=== PATIENT | male | born 1955 | race Caucasian/White ===

== ENCOUNTER 2016-12-20 11:28 | Inpatient (IN) | payer OTHER ==
[~2016-12-20] VITALS: Ht 193 cm; Wt 124.5 kg
[~2016-12-20 11:28] MED LIST: ASPI81 PO; DOXE25CA2 PO; FURO20 PO; HYDR25TA35 PO; LANTUSP SQ; LATA0.00 EACH EYE; LISI-366 PO; METF850T PO; METO50TA PO; NITR0.4S SL; OMEP20TA PO; POTA1TAB4 PO; PROC90TA PO
[2016-12-24] MEDS ORDERED: INSULIN HUMAN REGULAR 1,000 UNITS/10 ML VIAL SQ PRN (10:45)
[2016-12-24] MEDS ORDERED: SODIUM CHLORID 0.9% 500 ML IV PRN (10:45)
[2016-12-24] MEDS ORDERED: CHLORHEXIDINE GLUCONATE 2 % 1 PACK (2 CLOTHS) TOPICAL PRN (10:45)
[2016-12-24] MEDS ORDERED: LACTATED RINGER'S 1000 ML IV PRN (10:45)
[2016-12-24] MEDS ORDERED: POVIDONE IODINE 5% (ANTISEPSIS KIT) 4 APPLICATIONS EACH NARE PRN (10:45)
[2016-12-24] MEDS ORDERED: METOPROLOL TARTRATE 25 MG TAB PO PRN (10:45)
[2016-12-24] MEDS ORDERED: CHLORHEXIDINE GLUCONATE 4% SOLN 120 ML BTL TOPICAL SCH (11:00)
[2016-12-24] MEDS ORDERED: VANCOMYCIN 1000 MG/NS 250 ML (for <70 kg) IV SCH ×2 (11:00)
[2016-12-24] MEDS ORDERED: METO25TA3 PO (11:17)
[2016-12-24] MEDS ORDERED: LATA0.002 EACH EYE (11:17)
[2016-12-24] MEDS ORDERED: MOBI15TA PO (11:17)
[2016-12-24] MEDS ORDERED: ALDA100T PO (11:17)
[2016-12-24] MEDS ORDERED: LISI40TA PO (11:17)
[2016-12-24] MEDS ORDERED: ATOR40TA16 PO (11:17)
[2016-12-24] MEDS ORDERED: NIFE90TA2 PO (11:17)
[2016-12-24] MEDS ORDERED: ASPI-110 PO (11:17)
[2016-12-24] MEDS ORDERED: FURO20TA PO (11:17)
[2016-12-24] MEDS ORDERED: ACET325C PO (11:17)
[2016-12-24] MEDS ORDERED: DOXE25CA2 PO (11:17)
[2016-12-24] MEDS ORDERED: METF1000 PO (11:17)
[2016-12-24] MEDS ORDERED: OMEP20CA2 PO (11:17)
[2016-12-24] MEDS ORDERED: LANTUS2P SQ (11:17)
[2016-12-24] MEDS ORDERED: ISOS20TA PO (11:17)
[2016-12-24] MEDS ORDERED: NOVOLOGP2 SQ (11:17)
[2016-12-24 11:22] VITALS: BP 110/64; PULSE 68; RESP 18; TEMP 97.9; O2SAT 97
[2016-12-24] MEDS ORDERED: GENTAMICIN SULFATE 80 MG/2 ML VIAL ONE (11:42)
[2016-12-24] MEDS ORDERED: ACETAMINOPHEN 1000 MG/100 ML VIAL IV ONE (12:23)
[2016-12-24] MEDS ORDERED: MIDAZOLAM HCL 2 MG/2 ML VIAL ONE (12:23)
[2016-12-24] MEDS ORDERED: LR IV ONE (12:35)
[2016-12-24] MEDS ORDERED: [UNRECOGNIZED DRUG - OTHER] IV ONE (12:35)
[2016-12-24] MEDS ORDERED: CLINDAMYCIN PHOS 600 MG/4 ML VIAL ONE (13:01)
[2016-12-24] MEDS ORDERED: CLINDAMYCIN PHOS 600 MG/4 ML VIAL IRRIGATION ONE (13:21)
--- NOTE | 2016-12-24 14:48 | HHI.PR ---
Immediate Post Op Note Procedure Date: Dec 24, 2016 Pre Op Diagnosis: R Hip Severe OA Post Op Diagnosis: Same Surgeon: Nik Rosales MD Poultry Picking Machine Tender(s): Denae Rodríguez PA-C Procedure: R THR Complications: None Specimen(s) removed: None Estimated blood loss: 200cc Anesthesia: General Drains: None Patient to: PACU Patient Condition: Good Implant/Devices: SEE IMPLANT LOG (if applicable) Date/Time of Procedure: SEE SURGICAL CARE RECORD Nik Rosales MD Dec 24, 2016 14:48
[2016-12-24] MEDS ORDERED: Post-op Orders (for Pharmacy) MISC XX ONE (15:00)
[2016-12-24] MEDS ORDERED: ACETAMINOPHEN/HYDROcodone 325 MG/7.5 MG TAB PO PRN (15:00)
[2016-12-24] MEDS ORDERED: ONDANSETRON HCL 4 MG/2 ML VIAL IVP PRN (15:00)
[2016-12-24] MEDS ORDERED: ALUMINUM/MAGNESIUM/SIMETH 30 ML CUP PO PRN (15:00)
[2016-12-24] MEDS ORDERED: WALKER WHEELS/F1 MIS (15:04)
[2016-12-24] MEDS ORDERED: BEDSIDE COMMODE1 MI1 (15:04)
[2016-12-24] MEDS ORDERED: fentaNYL CITRATE 250 MCG/5 ML AMP ONE (15:12)
[2016-12-24] MEDS ORDERED: SODIUM CHLORIDE 0.9% FLUSH 10 ML FLUSH IV FLUSH PRN (15:45)
[2016-12-24] MEDS: SODIUM CHLORIDE 0.9% FLUSH 10 ML FLUSH IV FLUSH SCH ×2 (16:00→22:03)
[2016-12-24] MEDS: LACTATED RINGER'S 1000 ML INJ 1,000 ML IV SCH (16:00)
[2016-12-24] MEDS ORDERED: PILL SPLITTER OTHER PRN (16:00)
--- NOTE | 2016-12-24 16:03 | RADRPT ---
EXAM DATE/TIME: 12/24/2016 15:30 [place] COMPARISON: No previous studies available for comparison. INDICATIONS : Post op right hip arthroplasty. MEDICAL HISTORY : None. SURGICAL HISTORY : None. ENCOUNTER: Initial ACUITY: 1 day PAIN SCORE: 0/10 LOCATION: Right hip FINDINGS: The patient is post right hip arthroplasty. Orthopedic hardware is in excellent position. There are advanced degenerative changes within the left hip. The bowel gas pattern is unremarkable. CONCLUSION: 1. Orthopedic hardware in excellent position. Nimesh Jerry MD on December 24, 2016 at 16:00 Board Certified Radiologist. This report was verified electronically.
[2016-12-24] MEDS ORDERED: DO NOT ADM ANY ANTICOAGULANT DRUGS PRN (16:30)
[2016-12-24 16:50] VITALS: BP 171/87; PULSE 71; RESP 18; TEMP 97; O2SAT 99
[2016-12-24] MEDS ORDERED: INSULIN ASPART 1,000 UNITS/10 ML VIAL SQ SCH (17:00)
[2016-12-24 17:40] VITALS: O2SAT 99
[2016-12-24] MEDS: CLINDAMYCIN INJ 600 MG in SODIUM CHLORIDE 0.9% INJ 100 ML IV SCH (18:00)
[2016-12-24] MEDS: metFORMIN HCL 500 MG TAB PO SCH (18:08)
[2016-12-24] MEDS: FUROSEMIDE 20 MG TAB PO SCH (18:09)
[2016-12-24] MEDS: ACETAMINOPHEN/HYDROcodone 325 MG/7.5 MG TAB PO PRN ×2 (18:14→22:07)
[2016-12-24 19:00] VITALS: BP 165/79; PULSE 76; RESP 17; TEMP 95.9; O2SAT 99
--- NOTE | 2016-12-24 19:25 | MB ---
cc: DERREK BENSON M.D., ALBERT W. M.D. DATE OF CONSULTATION 12/24/2016 DATE OF 1955 REASON FOR CONSULTATION This is a 61-year-old gentleman status post right total hip with severe osteoarthritis. BRIEF HISTORY This gentleman has been noted to have severe osteoarthritis of his right hip requiring a total right hip. This was completed today on December 24, 2016. The patient has been referred to us for consideration of radiation treatment to prevent heterotrophic bone formation. This gentleman is status post hip surgery. He is alert and oriented and was suffering from immediate postoperative pain but otherwise in no immediate distress. PAST MEDICAL AND SURGICAL HISTORY Includes: 1. Coronary artery bypass surgery x2. 2. A previous right shoulder surgery. 3. He is an insulin-dependent diabetic. 4. He has severe osteoarthritis. 5. He also has a past history of hyperlipidemia. 6. Hypertension. 7. Sleep apnea. 8. Post traumatic stress. 9. Gastroesophageal reflux disease. 10. As mentioned he had a previous right shoulder surgery in 1988. 11. And coronary artery bypass surgery in 2005 and 2011. ALLERGIES INCLUDE PENICILLIN, PERCODAN AND SIMVASTATIN. REVIEW OF SYSTEMS This gentleman is seen in the postoperative setting. He is currently denying new symptoms, cardiovascular, respiratory, eyes, ears, nose or throat, neurologic, GI, or other complaints. He has had a recent total right hip repair and he is suffering with the normal pain immediate postoperative pain associated with this. PHYSICAL EXAMINATION GENERAL: Brief exam reveals an alert, oriented gentleman in no immediate distress. VITAL SIGNS: His vital signs have been noted to be afebrile, pulse of 73 and regular, respiratory rate of 20, blood pressure 146/74, pulse oximetry of 99%, although that was on 2 liters of oxygen. HEENT: There is no jaundice. His conjunctive and eyelids were normal. LYMPHATICS: There is no adenopathy in his head and neck. LUNGS: His lung muñoz were clear without effusion. CARDIOVASCULAR: His heart sounds were normal without murmurs, rubs or bruits. ABDOMEN: There are no abdominal masses. EXTREMITIES: His right hip has a dressing over this and his right leg is immobilized with an appropriate device. His left leg is normal. RECOMMENDATIONS I have reviewed with this gentleman the reason and rationale for consideration of postoperative radiation treatment after a total right hip repair. This is designed to reduce the risk of heterotropic osteodystrophy which can cause him pain and ultimately lead to the need for further surgery in the future. We make our decision to deliver this treatment based on Dr. Rosales's recommendation but the literature definitely supports this. Our desire to give treatment if possible within the first 24 hours or at least within the first 72 hours. With that in mind we plan to simulate this gentleman tomorrow and give him his treatment the same day so that is treatment will be within the first 24-hour period. Thank you again. MD RHONDA Abbasi/KK /5:07 PM /7:05 PM
[2016-12-24] MEDS: MORPHINE SULFATE 8 MG/ML INJ IM PRN (21:07)
[2016-12-24] MEDS: ATORVASTATIN 40 MG TAB PO SCH (22:02)
[2016-12-24] MEDS: LATANOPROST 0.005% OPHT SOLN 2.5 ML BTL EACH EYE SCH (22:02)
[2016-12-24] MEDS: METOPROLOL TARTRATE 25 MG TAB PO SCH (22:03)
[2016-12-24] MEDS: LISINOPRIL 20 MG TAB PO SCH (22:03)
[2016-12-24] MEDS: DOXEPIN HCL 25 MG CAP PO SCH (22:03)
--- NOTE | 2016-12-24 22:14 | PD.CONS ---
HPI Service [facility] Hospitalists Consult Requested By Orthopedic surgery Reason for Consult Medical management. Primary Care Physician [facility] Diagnoses: History of Present Illness Mr. Holman is a pleasant 61 year old [place] with a history of CAD s/p CABG, Diabetes mellitus, hypertension who underwent elective right total hip arthroplasty on 12/24/2016. At the time of this interview, patient is sitting in his chair and eating his dinner. He complains of right lower extremity pain. Denies any chest pain, shortness of breath, fever, chills. Denies any abdominal pain. No changes in bowel or bladder habits. Patient was seen earlier by Radiation Oncologist Dr. Amaral with regards to prevention of heterotrophic bone formation. Review of Systems Except as stated in HPI: all other systems reviewed are Neg Past Family Social History Allergies: Coded Allergies: Penicillin (Verified Allergy, Severe, 10/10/14) Simvastatin (Verified Allergy, Severe, 12/24/16) Percodan (Verified Adverse Reaction, Severe, HALLUCINATIONS, 10/10/14) Past Medical History Rheumatoid arthritis Osteoarthritis Diabetes mellitus CAD s/p CABG twice. Hyperlipidemia Hypertension Past Surgical History CABG twice Shoulder surgery Family History Dad - dementia, stroke. Social History Tobacco - quit 2 months ago Alcohol - Quit 7 years ago. Denies using illicit drugs. Physical Exam Vital Signs Vital Signs Date Time Temp Pulse Resp B/P Pulse Ox O2 Delivery O2 Flow Rate FiO2 12/24/16 19:00 95.9 76 17 165/79 99 12/24/16 17:40 99 21 12/24/16 16:50 97.0 71 18 171/87 99 12/24/16 15:05 97.9 73 20 146/74 99 Nasal Cannula 2 12/24/16 11:22 97.9 68 18 110/64 97 Physical Exam GENERAL: This is a well-nourished, well-developed patient, in no apparent distress. SKIN: No rashes, ecchymoses or lesions. Warm and dry. HEAD: Atraumatic. Normocephalic. No temporal or scalp tenderness. EYES: Pupils equal round and reactive. No injection or drainage. ENT: Nose without bleeding, purulent drainage or septal hematoma. Airway patent. NECK: Trachea midline. No lymphadenopathy. Supple, nontender, no meningeal signs. CARDIOVASCULAR: Regular rate and rhythm without murmurs, gallops, or rubs. No JVD. RESPIRATORY: Clear to auscultation. Breath sounds equal bilaterally. No wheezes , rales, or rhonchi. GASTROINTESTINAL: Abdomen soft, non-tender, nondistended. No guarding. MUSCULOSKELETAL: Extremities without clubbing, cyanosis, or edema. s/p right total hip arthroplasty. NEUROLOGICAL: Awake and alert. Cranial nerves II through XII intact. No focal neurological deficits. Normal speech. Laboratory Laboratory Tests Test 12/24/16 11:05 Blood Type A POSITIVE Antibody Screen NEGATIVE Crossmatch Leukocyte-Reduced Red Blood Cells Blood Bank Comment Imaging Last Impressions Hip and Pelvis X-Ray 12/24/16 0000 Signed Impressions: Service Date/Time: Saturday, December 24, 2016 15:30 - CONCLUSION: 1. Orthopedic hardware in excellent position. Nimesh Jerry MD Assessment and Plan Problem List: (1) Osteoarthritis of right hip ICD Code: M16.11 Status: Acute (2) CAD (coronary artery disease) ICD Code: I25.10 Status: Acute (3) Diabetes mellitus ICD Code: E11.9 Status: Acute (4) Hypertension ICD Code: I10 Status: Acute Assessment and Plan Mr. Holman is a pleasant 61 year old with a history of CAD s/p CABG, Diabetes mellitus, hypertension who underwent elective right total hip arthroplasty on 12/24/2016. - Right hip osteoarthritis - s/p right total hip arthroplasty - [place] 7.5mg 1-2 Tablets PRN for pain - Continue Colace, Dulcolax PRN for bowel regimen. - Warfarin for DVT Prophylaxis. - Radiation Oncology evaluated to prevent heterotrophic bone formation. Simulation on 12/25/2016. - Diabetes Mellitus - Continue Metformin 1000mg BIDPC - Patient is also on Aspart 20 units TIDAC as well as Levemir 40 units SQ daily. - Will reduce pre-meal insulin to 15 units TIDAC and Levemir to 25 units SQ Daily. - Hypertension - CAD s/p CABG twice - Hyperlipidemia - Continue Lisinopril 40mg QHS, Nifedipine 90mg Qday, - Lasix 20mg PO BID, Spironolactone 200mg Qday, Lipitor 40mg QHS Full code. Warfarin. Thank you for the consult. We will continue to follow this patient with you. Chanda Brothers DO Dec 24, 2016 22:14
[2016-12-25] VITALS (7 sets, daily range): BP systolic 116–189; BP diastolic 62–93; PULSE 66–82; RESP 16–20; TEMP 96.4–98.9; O2SAT 94–98
[2016-12-25] MEDS: CLINDAMYCIN INJ 600 MG in SODIUM CHLORIDE 0.9% INJ 100 ML IV SCH ×3 (00:18→11:40)
[2016-12-25] MEDS: MORPHINE SULFATE 8 MG/ML INJ IM PRN ×3 (00:18→09:40)
[2016-12-25] MEDS ORDERED: BISACODYL 10 MG SUPP RECTAL PRN (01:30)
[2016-12-25] MEDS: ACETAMINOPHEN/HYDROcodone 325 MG/7.5 MG TAB PO PRN ×5 (01:59→20:29)
[2016-12-25] MEDS: LACTATED RINGER'S 1000 ML INJ 1,000 ML IV SCH ×2 (03:15→16:55)
[2016-12-25 06:27] LABS: PROTHROMBIN TIME - PATIENT 11.3 SEC (9.8-11.6)
--- NOTE | 2016-12-25 07:23 | PD.ORT.PN ---
Subjective Subjective Remarks POD#1 R THR No sob;no chest pain Explained operative findings;answered multiple questions Objective Vitals Vital Signs Date Time Temp Pulse Resp B/P Pulse Ox O2 Delivery O2 Flow Rate FiO2 12/25/16 02:04 175/90 12/25/16 00:00 98.5 82 16 189/93 98 12/24/16 19:00 95.9 76 17 165/79 99 12/24/16 17:40 99 21 12/24/16 16:50 97.0 71 18 171/87 99 12/24/16 15:05 97.9 73 20 146/74 99 Nasal Cannula 2 12/24/16 11:22 97.9 68 18 110/64 97 I/O 12/24/16 12/24/16 12/24/16 12/25/16 12/25/16 12/25/16 07:00 15:00 23:00 07:00 15:00 23:00 Intake Total 1680 ml Output Total 1150 ml 200 ml Balance 530 ml -200 ml Intake Oral 480 ml IV Total 100 ml Other 1100 ml Output Urine Total 950 ml 200 ml Estimated Blood Loss 200 ml # Bowel Movements 0 Other Results Laboratory Tests Test 12/25/16 05:53 Prothrombin Time 11.3 SEC (9.8-11.6) Prothromb Time International 1.0 RATIO Ratio Objective Remarks N/V intact Neg trinh's;no calf tenderness No LLD Assessment & Plan Assessment and Plan Ortho stable PT/Rehab Coumadin,TEDS,Sequentials for DVT prophylaxsis D/C to [facility] Nik Rosales MD Dec 25, 2016 07:23
[2016-12-25] MEDS: INSULIN ASPART 1,000 UNITS/10 ML VIAL SQ SCH ×3 (08:00→16:55)
[2016-12-25] MEDS: SODIUM CHLORIDE 0.9% FLUSH 10 ML FLUSH IV FLUSH SCH ×2 (09:00→20:29)
[2016-12-25] MEDS ORDERED: SPIRONOLACTONE 100 MG TAB PO SCH (09:00)
[2016-12-25] MEDS ORDERED: INSULIN DETEMIR 100 UNITS/ML VIAL SQ SCH (09:00)
[2016-12-25] MEDS: ISOSORBIDE MONONITRATE 30 MG TAB PO SCH (09:42)
[2016-12-25] MEDS: METOPROLOL TARTRATE 25 MG TAB PO SCH ×2 (09:43→20:28)
[2016-12-25] MEDS: PANTOPRAZOLE SOD 20 MG DELAYED RELEASE TAB PO SCH (09:43)
[2016-12-25] MEDS: NIFEdipine 90 MG SUSTAINED RELEASE TAB PO SCH (09:43)
[2016-12-25] MEDS: FUROSEMIDE 20 MG TAB PO SCH ×2 (09:43→17:42)
[2016-12-25] MEDS: INSULIN DETEMIR 100 UNITS/ML VIAL SQ SCH (09:44)
[2016-12-25] MEDS: metFORMIN HCL 500 MG TAB PO SCH ×2 (09:44→20:28)
--- NOTE | 2016-12-25 12:17 | MP ---
cc: [facility], PATRICE PAREKH M.D. DATE OF SURGERY 12/24/2016 PREOPERATIVE DIAGNOSIS Right hip severe hyperostotic osteoarthritis. POSTOPERATIVE DIAGNOSIS Right hip severe hyperostotic osteoarthritis. PROCEDURE Right total hip arthroplasty. SURGEON Jeffery Parekh MD CONSULTING SALES EXECUTIVE Denae Rodríguez PA-C SPECIMENS None. ESTIMATED BLOOD LOSS 200 cc. COMPLICATIONS None. ANESTHESIA General. CONDITION Stable. PLAN OF ACTIVITY As per orders. PROCEDURE My dental laboratory assistant Denae Rodríguez PA-C, was present for the entire surgical case. She was medically necessary for the entire case because of the complexity of the case and to facilitate the performance of the procedure. The FINANCIAL ADMINISTRATION OFFICER at back table was not of the skill set for this case to manipulate the instruments e.g. the multiple different soft tissue retractors, trial implants and permanent implants. The patient was brought into the operating room and had satisfactory general endotracheal anesthesia by the Department of Anesthesia. The patient was carefully placed into the lateral decubitus position. With the patient's large sized, great care was made to protect all pressure points. The right hip and lower extremity down to and including the toes were all prepped and draped in the usual sterile manner. Small posterolateral exposure of the hip was made. All bleeders were then coagulated. Dissection was carried through the skin and subcutaneous tissue. The fascia brittanie and gluteus dana was incised in with the skin incision. Charnley retractor was placed in the wound in order to allow better exposure. Great care was taken to protect the sciatic nerve throughout entire operative procedure. The short external rotators were removed as a group. The hip abductors were preserved. Capsulotomy was performed. The hip was dislocated posteriorly. The patient was found to have severe osteoarthritis of the hip joint. Osteotomy of the femoral neck was made at the appropriate level. Exposure of the acetabulum was made. Acetabulum, labrum and capsule were surgically excised. Using hemispherical reamers, the acetabulum was sequentially reamed to 55 mm in outer diameter. Bicentric cup in Press-Fit type manner was found be stable and satisfactory. Attention brought to the femur. It was sequentially broached to a #12 broach using the [employer]ev[employer]loc system. Trial reduction was made with the 0 neck, 28-mm ball. The hip was reduced. The patient was found to have excellent stability, satisfactory limb lengths and satisfactory range of motion. The hip was again dislocated posteriorly. The wound was irrigated copiously. The wound itself was dry. Using the Bi[employer] Taperloc system, a #12 standard offset stem was placed in anatomic position approximately in 15 degrees of anteversion. The patient had excellent "fit and fill." 0 neck, 28-mm ceramic ball was then assembled onto the trunnion. The hip was reduced. Again the patient was found to have satisfactory stability, satisfactory limb length and satisfactory range of motion. The short external rotators were repaired back to the greater trochanter with drill holes using #2 Ticron suture. The wound was irrigated with copious amounts of sterile saline. The wound itself was dry. The wound was closed in routine manner. The fascia brittanie and gluteus dana was closed in line with the skin incision using #2 Ticron suture. The subcuticular layer was closed with 0 Vicryl and 2-0 Vicryl. The skin was approximated with running subcuticular 2-0 nylon suture. Sterile dressings were applied. The patient tolerated the procedure well and arrived in the recovery room in stable and satisfactory condition. MD KEVIN Villalpando/SSB /2:46 PM /11:55 AM
[2016-12-25] MEDS ORDERED: WARFARIN SOD 5 MG TAB PO SCH (16:00)
--- NOTE | 2016-12-25 19:25 | HHI.PR ---
Subjective Remarks Follow up for right hip osteoarthritis s/p right NIKKY in a patient with DM, HTN, CAD s/p CABG. Patient is doing well. He is sitting in his chair. He reports some sweating but no chest pain, shortness of breath, fever or chills. Objective Vitals Vital Signs Date Time Temp Pulse Resp B/P Pulse Ox O2 Delivery O2 Flow Rate FiO2 12/25/16 16:00 96.4 70 19 163/76 96 12/25/16 12:00 98.8 66 20 116/62 95 12/25/16 09:54 98 21 12/25/16 08:00 98.9 66 19 161/71 97 12/25/16 02:04 175/90 12/25/16 00:00 98.5 82 16 189/93 98 I/O 12/24/16 12/24/16 12/24/16 12/25/16 12/25/16 12/25/16 07:00 15:00 23:00 07:00 15:00 23:00 Intake Total 1680 ml 720 ml Output Total 1150 ml 200 ml 800 ml Balance 530 ml -200 ml -80 ml Intake Oral 480 ml 720 ml IV Total 100 ml Other 1100 ml Output Urine Total 950 ml 200 ml 800 ml Estimated Blood Loss 200 ml # Bowel Movements 0 Imaging Last Impressions Hip and Pelvis X-Ray 12/24/16 0000 Signed Impressions: Service Date/Time: Saturday, December 24, 2016 15:30 - CONCLUSION: 1. Orthopedic hardware in excellent position. Nimesh Jerry MD Objective Remarks GENERAL: AOx3, NAD. SKIN: Warm and dry. HEAD: Normocephalic. EYES: No scleral icterus. No injection or drainage. NECK: Supple, trachea midline. No JVD or lymphadenopathy. CARDIOVASCULAR: Regular rate and rhythm without murmurs, gallops, or rubs. RESPIRATORY: Breath sounds equal bilaterally. No accessory muscle use. GASTROINTESTINAL: Abdomen soft, non-tender, nondistended. MUSCULOSKELETAL: No cyanosis, or edema. BACK: Nontender without obvious deformity. No CVA tenderness. Procedures 12/24/2016 PROCEDURE Right total hip arthroplasty. A/P Problem List: (1) Osteoarthritis of right hip ICD Code: M16.11 Status: Acute (2) CAD (coronary artery disease) ICD Code: I25.10 Status: Acute (3) Diabetes mellitus ICD Code: E11.9 Status: Acute (4) Hypertension ICD Code: I10 Status: Acute Assessment and Plan Mr. Holman is a pleasant 61 year old with a history of CAD s/p CABG, Diabetes mellitus, hypertension who underwent elective right total hip arthroplasty on 12/24/2016. - Right hip osteoarthritis - s/p right total hip arthroplasty - [place] 7.5mg 1-2 Tablets PRN for pain - Continue Colace, Dulcolax PRN for bowel regimen. - Warfarin for DVT Prophylaxis. - Radiation Oncology evaluated to prevent heterotrophic bone formation. Simulation on 12/25/2016. - Diabetes Mellitus - Continue Metformin 1000mg BIDPC - At home patient is on Aspart 20 units TIDAC as well as Levemir 40 units SQ daily. - Continue reduced doses: pre-meal insulin to 15 units TIDAC and Levemir to 25 units SQ Daily. - Hypertension - CAD s/p CABG twice - Hyperlipidemia - Continue Lisinopril 40mg QHS, Nifedipine 90mg Qday, - Lasix 20mg PO BID, Spironolactone 200mg Qday, Lipitor 40mg QHS Full code. Warfarin. Chanda Brothers DO Dec 25, 2016 19:25
[2016-12-25] MEDS: DOCUSATE SODIUM 100 MG CAP PO SCH (20:28)
[2016-12-25] MEDS: LISINOPRIL 20 MG TAB PO SCH (20:28)
[2016-12-25] MEDS: ATORVASTATIN 40 MG TAB PO SCH (20:29)
[2016-12-25] MEDS: DOXEPIN HCL 25 MG CAP PO SCH (20:29)
[2016-12-25] MEDS: LATANOPROST 0.005% OPHT SOLN 2.5 ML BTL EACH EYE SCH (20:29)
[2016-12-25] MEDS: ZOLPIDEM TARTRATE 5 MG TAB PO PRN (21:53)
[2016-12-26 00:02] VITALS: BP 144/71; PULSE 65; RESP 18; TEMP 99; O2SAT 96
[2016-12-26] MEDS: ACETAMINOPHEN/HYDROcodone 325 MG/7.5 MG TAB PO PRN ×5 (02:07→20:47)
[2016-12-26] MEDS: LACTATED RINGER'S 1000 ML INJ 1,000 ML IV SCH ×2 (02:53→17:00)
[2016-12-26] MEDS: MORPHINE SULFATE 8 MG/ML INJ IM PRN (03:14)
[2016-12-26 05:51] LABS: PROTHROMBIN TIME - PATIENT 11.2 SEC (9.8-11.6)
[2016-12-26 05:54] LABS: HEMATOCRIT 33.7 % (39.0-51.0); REVIEW FLAG FINAL
--- NOTE | 2016-12-26 07:44 | HHI.PR ---
Subjective Remarks Follow up for right hip osteoarthritis s/p right NIKKY in a patient with DM, HTN, CAD s/p CABG. Mr. Holman is doing well today. Denies any chest pain, shortness of breath, fever, chills. Objective Vitals Vital Signs Date Time Temp Pulse Resp B/P Pulse Ox O2 Delivery O2 Flow Rate FiO2 12/26/16 00:02 99.0 65 18 144/71 96 12/25/16 20:05 98.3 74 18 143/68 94 12/25/16 16:00 96.4 70 19 163/76 96 12/25/16 12:00 98.8 66 20 116/62 95 12/25/16 09:54 98 21 12/25/16 08:00 98.9 66 19 161/71 97 I/O 12/25/16 12/25/16 12/25/16 12/26/16 12/26/16 12/26/16 07:00 15:00 23:00 07:00 15:00 23:00 Intake Total 720 ml 480 ml 480 ml Output Total 200 ml 800 ml 725 ml 1175 ml Balance -200 ml -80 ml -245 ml -695 ml Intake Oral 720 ml 480 ml 480 ml Output Urine Total 200 ml 800 ml 725 ml 1175 ml # Bowel Movements 0 0 Result Diagram: 12/26/16 0502 12/26/16 0502 Imaging Last Impressions Hip and Pelvis X-Ray 12/24/16 0000 Signed Impressions: Service Date/Time: Saturday, December 24, 2016 15:30 - CONCLUSION: 1. Orthopedic hardware in excellent position. Nimesh Jerry MD Objective Remarks GENERAL: AOx3, NAD. SKIN: Warm and dry. HEAD: Normocephalic. EYES: No scleral icterus. No injection or drainage. NECK: Supple, trachea midline. No JVD or lymphadenopathy. CARDIOVASCULAR: Regular rate and rhythm without murmurs, gallops, or rubs. RESPIRATORY: Breath sounds equal bilaterally. No accessory muscle use. GASTROINTESTINAL: Abdomen soft, non-tender, nondistended. MUSCULOSKELETAL: No cyanosis, or edema. BACK: Nontender without obvious deformity. No CVA tenderness. Procedures 12/24/2016 PROCEDURE Right total hip arthroplasty. A/P Problem List: (1) Osteoarthritis of right hip ICD Code: M16.11 Status: Acute (2) CAD (coronary artery disease) ICD Code: I25.10 Status: Acute (3) Diabetes mellitus ICD Code: E11.9 Status: Acute (4) Hypertension ICD Code: I10 Status: Acute Assessment and Plan Mr. Holman is a pleasant 61 year old with a history of CAD s/p CABG, Diabetes mellitus, hypertension who underwent elective right total hip arthroplasty on 12/24/2016. - Right hip osteoarthritis - s/p right total hip arthroplasty - [place] 7.5mg 1-2 Tablets PRN for pain - Continue Colace, Dulcolax PRN for bowel regimen. - Warfarin for DVT Prophylaxis. - Radiation Oncology evaluated to prevent heterotrophic bone formation. Simulation on 12/25/2016. - Diabetes Mellitus - Continue Metformin 1000mg BIDPC - At home patient is on Aspart 20 units TIDAC as well as Levemir 40 units SQ daily. - Continue reduced doses: pre-meal insulin to 15 units TIDAC and Levemir to 25 units SQ Daily. - Currently blood glucose 140-170s. This is reasonable while he is in the hospital. - Hypertension - CAD s/p CABG twice - Hyperlipidemia - Currently on Lisinopril 40mg QHS, Nifedipine 90mg Qday, - Lasix 20mg PO BID, Spironolactone 200mg Qday, Lipitor 40mg QHS - BP is somewhat on the lower side (101/52). We will reduce Lisinopril to 20mg QHS and Spironolactone 100mg Qday. - Acute kidney injury - Baseline creatinine appears to be below 1.0. His creatinine today 1.24. - Possibly due to diuretics use as well as Lisinopril use. - We will monitor while he is here. Will request BMP one week after discharge as well. Full code. Warfarin. Chanda Brothers DO Dec 26, 2016 7:44 am
--- NOTE | 2016-12-26 07:53 | PD.ORT.PN ---
Subjective Subjective Remarks pt doing better than yesterday Objective Vitals Vital Signs Date Time Temp Pulse Resp B/P Pulse Ox O2 Delivery O2 Flow Rate FiO2 12/26/16 00:02 99.0 65 18 144/71 96 12/25/16 20:05 98.3 74 18 143/68 94 12/25/16 16:00 96.4 70 19 163/76 96 12/25/16 12:00 98.8 66 20 116/62 95 12/25/16 09:54 98 21 12/25/16 08:00 98.9 66 19 161/71 97 I/O 12/25/16 12/25/16 12/25/16 12/26/16 12/26/16 12/26/16 07:00 15:00 23:00 07:00 15:00 23:00 Intake Total 720 ml 480 ml 480 ml Output Total 200 ml 800 ml 725 ml 1175 ml Balance -200 ml -80 ml -245 ml -695 ml Intake Oral 720 ml 480 ml 480 ml Output Urine Total 200 ml 800 ml 725 ml 1175 ml # Bowel Movements 0 0 Result Diagram: 12/26/16 0502 12/26/16 0502 Other Results Laboratory Tests Test 12/26/16 05:02 Prothrombin Time 11.2 SEC (9.8-11.6) Prothromb Time International 1.0 RATIO Ratio Objective Remarks sitting up in chair comfortably right hip dressing dry and intact N/V intact Neg trinh's;no calf tenderness No LLD Assessment & Plan Assessment and Plan POD # 2 s/p R NIKKY Ortho stable PT/Rehab Coumadin,TEDS,Sequentials for DVT prophylaxsis- 7.5 mg today D/C to SNF tomorrow if stable Denae Rodríguez Dec 26, 2016 07:53
[2016-12-26 08:00] VITALS: BP 101/52; PULSE 73; RESP 18; TEMP 96.5; O2SAT 96
[2016-12-26] MEDS: INSULIN ASPART 1,000 UNITS/10 ML VIAL SQ SCH ×3 (08:00→17:00)
[2016-12-26] MEDS: DOCUSATE SODIUM 100 MG CAP PO SCH ×2 (08:50→20:44)
[2016-12-26] MEDS: metFORMIN HCL 500 MG TAB PO SCH ×2 (08:51→17:00)
[2016-12-26] MEDS: PANTOPRAZOLE SOD 20 MG DELAYED RELEASE TAB PO SCH (08:52)
[2016-12-26] MEDS: SODIUM CHLORIDE 0.9% FLUSH 10 ML FLUSH IV FLUSH SCH ×2 (08:57→20:44)
[2016-12-26] MEDS: FUROSEMIDE 20 MG TAB PO SCH ×2 (09:00→17:00)
[2016-12-26] MEDS: METOPROLOL TARTRATE 25 MG TAB PO SCH ×2 (09:00→20:45)
[2016-12-26] MEDS: INSULIN DETEMIR 100 UNITS/ML VIAL SQ SCH (09:00)
[2016-12-26 12:00] VITALS: BP 156/75; PULSE 76; RESP 18; TEMP 97.6; O2SAT 99
[2016-12-26] MEDS ORDERED: ONDANSETRON HCL 4 MG/2 ML VIAL IV PUSH ONE (12:00)
[2016-12-26] MEDS ORDERED: SODIUM CHLORIDE 0.9% INJ 250 ML IV ONE (12:00)
[2016-12-26] MEDS ORDERED: PROPOFOL 200 MG/20 ML AMP IV ONE (12:00)
[2016-12-26] MEDS ORDERED: LACTATED RINGER'S 1000 ML INJ 1,000 ML IV ONE (12:00)
[2016-12-26] MEDS ORDERED: ePHEDrine/NS 25 MG/5 ML SYR IV ONE (12:00)
[2016-12-26] MEDS ORDERED: NEOSTIGMINE 3 MG/3 ML SYR IV ONE (12:00)
[2016-12-26] MEDS ORDERED: PHENYLEPH/NS 1000 MCG/10 ML SYR IV ONE (12:00)
[2016-12-26] MEDS: ISOSORBIDE MONONITRATE 30 MG TAB PO SCH (12:27)
[2016-12-26] MEDS: NIFEdipine 90 MG SUSTAINED RELEASE TAB PO SCH (12:27)
[2016-12-26] MEDS ORDERED: LACTULOSE SYRUP 20 GM/30 ML CUP PO PRN (14:15)
[2016-12-26] MEDS ORDERED: SENNOSIDES 8.6 MG TAB PO PRN (14:15)
[2016-12-26 16:00] VITALS: BP 137/74; PULSE 80; RESP 18; TEMP 97.8; O2SAT 97
[2016-12-26] MEDS ORDERED: WARFARIN SOD 7.5 MG TAB PO ONE (16:00)
[2016-12-26 20:00] VITALS: BP 134/60; PULSE 84; RESP 16; TEMP 98.2; O2SAT 96
[2016-12-26] MEDS: MAGNESIUM HYDROXIDE SUSP 30 ML CUP PO SCH (20:44)
[2016-12-26] MEDS: LATANOPROST 0.005% OPHT SOLN 2.5 ML BTL EACH EYE SCH (20:44)
[2016-12-26] MEDS: DOXEPIN HCL 25 MG CAP PO SCH (20:45)
[2016-12-26] MEDS: ATORVASTATIN 40 MG TAB PO SCH (20:46)
[2016-12-26] MEDS ORDERED: LISINOPRIL 20 MG TAB PO SCH (21:00)
[2016-12-27 00:15] VITALS: BP 120/56; PULSE 72; RESP 20; TEMP 97.6; O2SAT 96
[2016-12-27] MEDS: ZOLPIDEM TARTRATE 5 MG TAB PO PRN (00:27)
[2016-12-27] MEDS: ACETAMINOPHEN/HYDROcodone 325 MG/7.5 MG TAB PO PRN ×5 (00:28→17:25)
[2016-12-27] MEDS: LACTATED RINGER'S 1000 ML INJ 1,000 ML IV SCH (06:26)
[2016-12-27 06:30] LABS: PROTHROMBIN TIME - PATIENT 11.1 SEC (9.8-11.6)
[2016-12-27 08:00] VITALS: BP 128/65; PULSE 71; RESP 18; TEMP 97.7; O2SAT 96
[2016-12-27] MEDS: INSULIN ASPART 1,000 UNITS/10 ML VIAL SQ SCH ×3 (08:00→17:00)
[2016-12-27] MEDS: INSULIN DETEMIR 100 UNITS/ML VIAL SQ SCH (09:00)
[2016-12-27] MEDS ORDERED: SPIRONOLACTONE 100 MG TAB PO SCH (09:00)
[2016-12-27] MEDS: SODIUM CHLORIDE 0.9% FLUSH 10 ML FLUSH IV FLUSH SCH (09:00)
[2016-12-27] MEDS: NIFEdipine 90 MG SUSTAINED RELEASE TAB PO SCH (10:13)
[2016-12-27] MEDS: metFORMIN HCL 500 MG TAB PO SCH ×2 (10:13→17:24)
[2016-12-27] MEDS: DOCUSATE SODIUM 100 MG CAP PO SCH (10:13)
[2016-12-27] MEDS: MAGNESIUM HYDROXIDE SUSP 30 ML CUP PO SCH (10:13)
[2016-12-27] MEDS: ISOSORBIDE MONONITRATE 30 MG TAB PO SCH (10:13)
[2016-12-27] MEDS: METOPROLOL TARTRATE 25 MG TAB PO SCH (10:14)
[2016-12-27] MEDS: PANTOPRAZOLE SOD 20 MG DELAYED RELEASE TAB PO SCH (10:14)
[2016-12-27] MEDS: FUROSEMIDE 20 MG TAB PO SCH ×2 (10:14→17:24)
--- NOTE | 2016-12-27 11:25 | HHI.PR ---
Subjective Remarks Follow up for right hip osteoarthritis s/p right NIKKY in a patient with DM, HTN, CAD s/p CABG. Mr. Holman is doing well. No acute concerns. He has not had any bowel movements yet. He does not want to drink prune juice but has taken Milk of Mag. No fever, chills. Objective Vitals Vital Signs Date Time Temp Pulse Resp B/P Pulse Ox O2 Delivery O2 Flow Rate FiO2 12/27/16 08:00 97.7 71 18 128/65 96 12/27/16 00:15 97.6 72 20 120/56 96 12/26/16 20:00 98.2 84 16 134/60 96 12/26/16 16:00 97.8 80 18 137/74 97 12/26/16 13:26 16 12/26/16 12:00 97.6 76 18 156/75 99 I/O 12/26/16 12/26/16 12/26/16 12/27/16 12/27/16 12/27/16 07:00 15:00 23:00 07:00 15:00 23:00 Intake Total 480 ml 1440 ml 480 ml Output Total 1175 ml 1300 ml 350 ml Balance -695 ml 140 ml 130 ml Intake Oral 480 ml 1440 ml 480 ml Output Urine Total 1175 ml 1300 ml 350 ml # Bowel Movements 0 0 Result Diagram: 12/26/16 0502 12/26/16 0502 Imaging Last Impressions Hip and Pelvis X-Ray 12/24/16 0000 Signed Impressions: Service Date/Time: Saturday, December 24, 2016 15:30 - CONCLUSION: 1. Orthopedic hardware in excellent position. Nimesh Jerry MD Objective Remarks GENERAL: AOx3, NAD. SKIN: Warm and dry. HEAD: Normocephalic. EYES: No scleral icterus. No injection or drainage. NECK: Supple, trachea midline. No JVD or lymphadenopathy. CARDIOVASCULAR: Regular rate and rhythm without murmurs, gallops, or rubs. RESPIRATORY: Breath sounds equal bilaterally. No accessory muscle use. GASTROINTESTINAL: Abdomen soft, non-tender, nondistended. MUSCULOSKELETAL: No cyanosis, or edema. BACK: Nontender without obvious deformity. No CVA tenderness. Procedures 12/24/2016 PROCEDURE Right total hip arthroplasty. A/P Problem List: (1) Osteoarthritis of right hip ICD Code: M16.11 Status: Acute (2) CAD (coronary artery disease) ICD Code: I25.10 Status: Acute (3) Diabetes mellitus ICD Code: E11.9 Status: Acute (4) Hypertension ICD Code: I10 Status: Acute Assessment and Plan Mr. Holman is a pleasant 61 year old Ross with a history of CAD s/p CABG, Diabetes mellitus, hypertension who underwent elective right total hip arthroplasty on 12/24/2016. - Right hip osteoarthritis - s/p right total hip arthroplasty - [place] 7.5mg 1-2 Tablets PRN for pain - Continue Colace, Milk of Mag, Dulcolax PRN for bowel regimen. - Warfarin for DVT Prophylaxis. - Radiation Oncology evaluated to prevent heterotrophic bone formation. Simulation on 12/25/2016. - Diabetes Mellitus - Continue Metformin 1000mg BIDPC - At home patient is on Aspart 20 units TIDAC as well as Levemir 40 units SQ daily. - Continue reduced doses: pre-meal insulin to 15 units TIDAC and Levemir to 25 units SQ Daily. - Hypertension - CAD s/p CABG twice - Hyperlipidemia - Currently on Lisinopril 20mg QHS, Nifedipine 90mg Qday, - Lasix 20mg PO BID, Spironolactone 100mg Qday, Lipitor 40mg QHS - Acute kidney injury - Baseline creatinine appears to be below 1.0. Creatinine 1.24 on 12/26/2016 - Possibly due to diuretics use as well as Lisinopril use. - We will monitor while he is here. Will request BMP one week after discharge as well. Full code. Warfarin. Chanda Brothers DO Dec 27, 2016 11:25 am
[2016-12-27 11:39] VITALS: BP 115/66; PULSE 72; RESP 17; TEMP 96.7; O2SAT 96
--- NOTE | 2016-12-27 12:38 | PD.ORT.PN ---
Subjective Subjective Remarks pt doing well, ready to be discharged today no sob, no chest pain Objective Vitals Vital Signs Date Time Temp Pulse Resp B/P Pulse Ox O2 Delivery O2 Flow Rate FiO2 12/27/16 11:39 96.7 72 17 115/66 96 12/27/16 08:00 97.7 71 18 128/65 96 12/27/16 00:15 97.6 72 20 120/56 96 12/26/16 20:00 98.2 84 16 134/60 96 12/26/16 16:00 97.8 80 18 137/74 97 12/26/16 13:26 16 I/O 12/26/16 12/26/16 12/26/16 12/27/16 12/27/16 12/27/16 07:00 15:00 23:00 07:00 15:00 23:00 Intake Total 480 ml 1440 ml 480 ml Output Total 1175 ml 1300 ml 350 ml Balance -695 ml 140 ml 130 ml Intake Oral 480 ml 1440 ml 480 ml Output Urine Total 1175 ml 1300 ml 350 ml # Bowel Movements 0 0 Result Diagram: 12/26/16 0502 12/26/16 0502 Other Results Laboratory Tests Test 12/27/16 05:46 Prothrombin Time 11.1 SEC (9.8-11.6) Prothromb Time International 1.0 RATIO Ratio Objective Remarks seen by Dr. Nik Rosales right hip dressing dry and intact N/V intact Neg trinh's;no calf tenderness No LLD Assessment & Plan Assessment and Plan POD # 3 s/p R NIKKY Orth[facility] stable PT/Rehab Coumadin 10 mg today TEDS,Sequentials for DVT prophylaxsis- D/C to SNF today Denae Rodríguez Dec 27, 2016 12:38
[2016-12-27 16:00] VITALS: BP 116/54; PULSE 80; RESP 18; TEMP 97.9; O2SAT 97
[2016-12-27] MEDS ORDERED: WARFARIN SOD 10 MG TAB PO ONE (16:00)
[2016-12-27] MEDS ORDERED: WARFARIN SOD 5 MG TAB PO SCH (16:00)
[2016-12-27] MEDS ORDERED: LISI40TA PO (16:05)
[2016-12-27] MEDS ORDERED: ALDA100T PO (16:05)
[2016-12-28] MEDS ORDERED: WARFARIN SOD 5 MG TAB PO SCH (16:00)
--- NOTE | 2016-12-31 08:59 | HHI.DS ---
Discharge Summary Admission Date Dec 24, 2016 at 10:18 Discharge Date: Dec 27, 2016 Admitting Diagnosis Right hip osteoarthritis Diagnosis: (1) Osteoarthritis of right hip Diagnosis: Principal Procedures R NIKKY Brief History This is a 61 year old male patient who presents with the following history. Patient has had hip pain for over 15 years. He has ambulating with a cane for the last 8 years. He has been treated with arthritis medications and also with hydrocodone and tramadol for the pain. He states the pain has progressed and is now having increased difficulty ambulating. Patient is ready to proceed forward with surgical intervention. Imaging x-rays of the right hip show severe osteoarthritis with joint space narrowing PE at Discharge seen by Dr. Nik Rosales right hip dressing dry and intact N/V intact Neg trinh's;no calf tenderness No LLD Hospital Course Patient underwent satisfactory anaesthesia by the dept of anaesthesia. He underwent right total hip arthroplasty on the date of admission. He did well following the procedure. He was treated with low dose coumadin night before procedure and will continue with low dose coumadin for four weeks post operatively to try and prevent DVT. He was started with physical therapy full weight bearing on pod #1. He was also treated with knee high TEDs and sequentials during his stay. He was followed by medical for further evaluation of medical co-morbidities. He progressed well and was discharged to a longterm facility on pod #3 in stable condition. Pt Condition on Discharge: Stable Discharge Disposition: Discharge to SNF Discharge Instructions Diet Instructions: Coumadin (Warfarin) Diet Activities You Can Perform: Weight Bearing as Denae Cárdenas Dec 31, 2016 08:59
== END 2016-12-27 18:22 | DRG 470 ==
LOC: HSDI 12-24 10:18 → N06B 12-24 16:20
PROVIDERS: ADMIT Orthopaedic Surgery Orthopaedic Surgery of the Spine; ATTEND Orthopaedic Surgery Orthopaedic Surgery of the Spine
PROC: 0SR903A Replacement of Right Hip Joint with Ceramic Synthetic Substitute, Uncemented, Open Approach (ICD-10-PCS; principal; 2016-12-24 12:50)
DX: M16.11 Unilateral primary osteoarthritis, right hip (principal); N17.9 Acute kidney failure, unspecified; M06.9 Rheumatoid arthritis, unspecified; I10 Essential (primary) hypertension; I25.10 Atherosclerotic heart disease of native coronary artery without angina pectoris; Z95.1 Presence of aortocoronary bypass graft; E11.9 Type 2 diabetes mellitus without complications; Z79.84 Long term (current) use of oral hypoglycemic drugs; Z79.4 Long term (current) use of insulin; G47.30 Sleep apnea, unspecified; E78.5 Hyperlipidemia, unspecified; K21.9 Gastro-esophageal reflux disease without esophagitis; H40.9 Unspecified glaucoma; Z87.891 Personal history of nicotine dependence
CPT/HCPCS: 73501; 77290; 77307; 77334; 77336; 77412; 77417; 77431; 80048; 82948; 85014; 85018; 85610; 86850; 86900; 86901; 86920; 94150; 99222; C1776; J0131; J1580; J1815; J2250; J2270; J2370; J2405; J2710; J3010; J3370; J7050; J7120; J7121; L1830

== ENCOUNTER 2018-07-10 16:57 | Inpatient (IN) ==
--- NOTE | 2018-07-10 17:36 | ED ---
HPI General Chief complaint: Recheck/Abnormal Lab/Rx Stated complaint: abnormal labs Time Seen by Provider: 07/10/18 17:24 History of Present Illness HPI narrative: This is a 62-year-old male who was sent from the [place] for evaluation of abnormal lab work. Patient reports that he had a routine appointment with a physical therapist today. He was told that he "does not look right" and ended up having outpatient lab work today. He was told that his kidney function was decreased and that his liver function may also possibly be decreased. He was then sent here for further evaluation. In regards to symptoms, the patient reports over the past 2 weeks he has had the sensation of weakness in his legs as well as fatigue, paresthesias in the extremities. Symptoms are moderate. He denies any recent medication changes. He has a history of coronary artery disease, hypertension, sleep apnea, osteoarthritis, rheumatoid arthritis, CHF, hyperlipidemia. He has no other complaints at this time. Related Data Allergies Allergy/AdvReac Type Severity Reaction Status Date / Time penicillin G Allergy Severe Rash Verified 07/10/18 18:41 simvastatin Allergy Severe Rash Verified 07/10/18 18:41 aspirin AdvReac Severe HALLUCINATI Verified 07/10/18 18:41 ONS oxycodone AdvReac Severe HALLUCINATI Verified 07/10/18 18:41 ONS Review of Systems ROS: all other systems reviewed are negative [facility] Medical History Medical History Diabetes (Acute) HTN (hypertension) (Acute) Osteoarthritis (Acute) Rheumatoid aortitis (Acute) Surgical History Surgical History H/O shoulder surgery (Acute) History of hip replacement (Acute) S/P CABG x 3 (Acute) S/P CABG x 4 (Acute) Social History Social History Substance History: No History of Abuse Smoking Status: Former smoker How Often Do You Have a Drink Containing Alcohol: Monthly or less Recent Travel in [facility] within the Last 8 Weeks: No Recent Out of Country Travel within the Last 8 Weeks: No Exam Narrative Exam Narrative: GENERAL: This is a well-developed well-nourished male who is in no acute distress. SKIN: Warm and dry. HEAD: Atraumatic. Normocephalic. EYES: Pupils equal and round. No scleral icterus. No injection or drainage. ENT: No nasal bleeding or discharge. Mucous membranes pink and moist. NECK: Trachea midline. No JVD. CARDIOVASCULAR: Regular rate and rhythm. No murmur appreciated. RESPIRATORY: No accessory muscle use. Clear to auscultation. Breath sounds equal bilaterally. GASTROINTESTINAL: Abdomen soft, non-tender, nondistended. Hepatic and splenic margins not palpable. MUSCULOSKELETAL: No obvious deformities. No clubbing. No cyanosis. No edema. NEUROLOGICAL: Awake and alert. No obvious cranial nerve deficits. Motor grossly within normal limits. Normal speech. Course Initial Documented Vital Signs Temperature 97.3 F L 07/10/18 17:08 Pulse Rate 61 07/10/18 17:08 Respiratory Rate 20 07/10/18 17:08 Blood Pressure 120/61 07/10/18 17:08 Pulse Oximetry 99 07/10/18 17:08 Last Documented Vital Signs Temperature 97.3 F L 07/10/18 17:08 Pulse Rate 74 07/10/18 19:32 Respiratory Rate 16 07/10/18 19:32 Blood Pressure 127/82 07/10/18 17:36 Pulse Oximetry 98 07/10/18 17:36 Medical Decision Making RAYMOND Attestation RAYMOND supervised visit: Yes Attestation: I, Dr. Lockhart, have reviewed the advance practice practitioner's documentation and am in agreement, met with the patient face to face, made the diagnosis, and the medical decision making was done by me. *My assessment and Findings: This patient was sent to us from the [facility] [address] because of acute renal failure. He reports the onset of muscle spasms in his legs and tingling of his fingers about 2 weeks ago. He was seen by physical therapy today. The physical therapist thought that he "did not look good. He was eventually seen by his physician. He was found to have renal failure. Please see Jose Eduardo Andres PA-C's note for a more detailed H&P, final diagnosis and disposition MDM Narrative Medical decision making narrative: The patient was placed on ECG monitoring pulse oximetry. A 12-lead EKG was ordered. An IV will be established, lab work will be obtained and sent to lab. Lab work is notable for a potassium of 5.9, BUN of 51, creatinine 4.17, GFR 15. By comparison his GFR was 59 on December 26, 2016. The patient will be given Kayexalate, calcium gluconate, insulin, dextrose, 500 mL normal saline bolus and albuterol for the treatment of hyperkalemia. He will be admitted for further treatment. Medical Screen Exam Complete: Yes Emergency Medical Condition: Yes Differential Diagnosis Differential Diagnosis: Renal failure, electrolyte abnormality, dehydration, liver failure, medical clearance Lab Data Result diagrams: 07/10/18 17:51 07/10/18 17:51 Lab Results 07/10/18 07/10/18 Range/Units 17:51 17:51 WBC 7.1 (4.0-11.0) th/mm3 RBC 3.86 L (4.50-5.90) mil/mm3 Hgb 12.2 L (13.0-17.0) gm/dL Hct 35.4 L (39.0-51.0) % MCV 91.8 (80.0-100.0) fL MCH 31.7 (27.0-34.0) pg MCHC 34.6 (32.0-36.0) % RDW 13.7 (11.6-17.2) % Plt Count 230 (150-450) th/mm3 MPV 7.3 (7.0-11.0) fL Neut % (Auto) 66.1 (16.0-70.0) % Lymph % (Auto) 23.4 (9.0-44.0) % [place] % (Auto) 7.0 (0.0-8.0) % Eos % (Auto) 2.7 (0.0-4.0) % Baso % (Auto) 0.8 (0.0-2.0) % Neut # (Auto) 4.7 (1.8-7.7) th/mm3 Lymph # (Auto) 1.7 (1.0-4.8) th/mm3 [place] # (Auto) 0.5 (0.0-0.9) th/mm3 Eos # (Auto) 0.2 (0.0-0.4) th/mm3 Baso # (Auto) 0.1 (0.0-0.2) th/mm3 WBC Differential . Differential Comment Auto diff final Sodium 134 L (136-145) meq/L Potassium 5.9 H (3.5-5.1) meq/L Chloride 107 (98-107) meq/L Carbon Dioxide 18.6 L (21.0-32.0) meq/L Anion Gap 8 (5-15) meq/L BUN 51 H (7-18) mg/dL Creatinine 4.17 H (0.60-1.30) mg/dL Estimated GFR 15 L (>89) mL/min Random Glucose 150 H (74-106) mg/dL Calcium 8.6 (8.5-10.1) mg/dL Magnesium 1.9 (1.5-2.5) mg/dL Total Bilirubin 0.6 (0.2-1.0) mg/dL AST 13 L (15-37) U/L ALT 32 (12-78) U/L Alkaline Phosphatase 123 H (45-117) U/L Total Protein 8.3 H (6.4-8.2) g/dL Albumin 3.7 (3.4-5.0) g/dL Discharge Plan Discharge Disposition Patient Disposition: ED Admit(ED Internal Use Only) Discharge Condition Condition: Stable Discharge Order Discharge Orders: ED Use Only Admit Order (Routine); Ordered 07/10/18 Ordered By: Jose Eduardo Andres Discharge Details Diagnosis: Acute renal failure, Acute hyperkalemia Physicians Team ED Provider: Nguyen Lockhart ED Midlevel Provider: Jose Eduardo Andres Primary Care Provider: [facility] Attending Provider: Tera Escamilla Status ED Status: Admitted Patient
[2018-07-10 18:03] LABS: Baso # (Auto) 0.1 th/mm3 (0.0-0.2); Baso % (Auto) 0.8 % (0.0-2.0); Eos # (Auto) 0.2 th/mm3 (0.0-0.4); Eos % (Auto) 2.7 % (0.0-4.0); Hematocrit 35.4 % (39.0-51.0); Hemoglobin 12.2 gm/dL (13.0-17.0); Lymph # (Auto) 1.7 th/mm3 (1.0-4.8); Lymph % (Auto) 23.4 % (9.0-44.0); Mean Corpuscular HGB Conc 34.6 % (32.0-36.0); Mean Corpuscular Hemoglobin 31.7 pg (27.0-34.0); Mean Corpuscular Volume 91.8 fL (80.0-100.0); Mean Platelet Volume 7.3 fL (7.0-11.0); Mono # (Auto) 0.5 th/mm3 (0.0-0.9); Neut # (Auto) 4.7 th/mm3 (1.8-7.7); Neut % (Auto) 66.1 % (16.0-70.0); Platelet Count 230 th/mm3 (150-450); Red Blood Count 3.86 mil/mm3 (4.50-5.90); Red Cell Distribution Width 13.7 % (11.6-17.2); White Blood Count 7.1 th/mm3 (4.0-11.0)
[2018-07-10 18:31] LABS: Albumin 3.7 g/dL (3.4-5.0); Anion Gap 8 meq/L (5-15); Aspartate Aminotransferase 13 U/L (15-37); Blood Urea Nitrogen 51 mg/dL (7-18); Calcium 8.6 mg/dL (8.5-10.1); Carbon Dioxide 18.6 meq/L (21.0-32.0); Chloride 107 meq/L (98-107); Glomerular Filtration Rate 15 mL/min (>89); Glucose,Random 150 mg/dL (74-106); Magnesium 1.9 mg/dL (1.5-2.5); Potassium 5.9 meq/L (3.5-5.1); Sodium 134 meq/L (136-145)
[2018-07-10] MEDS ORDERED: Dextrose 50% in Water 50 ML Vial IV.PUSH ONE (18:33)
[2018-07-10] MEDS ORDERED: RESP: Albuterol Concentrated 2.5 MG/0.5 ML Neb NEB ONE (18:33)
[2018-07-10] MEDS ORDERED: Sodium Polystyrene Sulfonate/Sorbitol Liq 15 GM/60 ML UDC PO ONE (18:33)
[2018-07-10] MEDS ORDERED: Calcium Gluconate Inj 1 GM in Sodium Chlor 0.9% Inj 100 ML IV.SIG ONE (18:33)
[2018-07-10 18:34] LABS: Alanine Aminotransferase 32 U/L (12-78); Alkaline Phosphatase 123 U/L (45-117); Total Protein 8.3 g/dL (6.4-8.2)
[2018-07-10] MEDS ORDERED: Sodium Chlor 0.9% Inj 500 ML IV.SIG SCH (19:00)
[2018-07-10] MEDS ORDERED: Acetaminophen 325 MG Tablet PO PRN (19:23)
[2018-07-10] MEDS ORDERED: Bisacodyl 10 MG Supp RECTAL PRN (19:23)
[2018-07-10] MEDS ORDERED: Dextrose 50% in Water 50 ML Vial IV.PUSH PRN (19:26)
[2018-07-11] MEDS ORDERED: Nitroglycerin SL (Override) 0.4 MG Tab SL PRN (02:42)
--- NOTE | 2018-07-11 02:42 | P.HPIM ---
History of Present Illness Primary Care Physician: [facility] History from patient, ER physician communication, and review of medical records. Patient reported that he was at [facility] for his regular appointment with the physical therapist. Physical therapist noted that patient was not looking well and therefore called the primary care nurse who examined him and thought that he was not looking well. He then was evaluated by his doctor in the clinic agreed with the nurse assessment and therefore did blood work at the clinic. The blood work revealed acute renal failure for which he was sent to the hospital. Patient also reports that for the past 2 weeks, he has been feeling generally weak. He says was simply not able to walk with his walker anymore. He also reports of shortness of breath. Denies any nausea or vomiting or diarrhea. Denies any fever/cough. Denies any urinary burning or pain on urination or frequent urination. Denies any hematemesis/hematochezia/melena/hematuria. He states that he however has soft stools on and off and loose stools. States this has been chronic. Patient is not aware of any prior history of renal failure. He does not have any flank pain. He is on statins at home. However nothing new medications. He is also taking metformin, spironolactone, furosemide. Past medical history: Hypertension Diabetes Coronary artery disease status post CABG. Triple bypass in 2005, and quadruple bypass in 2011. States that he is due for angiogram on August 15, 2018 because of abnormal stress test done recently. Hyperlipidemia COPD. Recent diagnosis. Obstructive sleep apnea on CPAP at night History of renal stones Osteoarthritis Rheumatoid arthritis Past surgical history: CABG Coronary angiogram Right shoulder AC joint repair in 1987 Right hip replacement Social history: Used to smoke cigarettes, quit a year ago. Denies any alcohol abuse or drug abuse. He used to use marijuana. Family history: Family history of rheumatoid arthritis in his mother. Also mom had thyroid disorders, and blood cancer. Home medications: Patient had a list of his home medications from the [facility] in his chart. This was reviewed against our EMR med reconciliation. Inpatient Certification Inpatient Certification: I certify that the inpatient services were ordered in accordance with Medicare regulations governing the order. This includes certification that hospital inpatient services are reasonable and necessary and in the case of services not specified as inpatient-only under 42 CFR 419.22(n), that they are appropriately provided as inpatient services in accordance to with the 2-midnight benchmark under 43 CFR 412.3(e) Estimated Total Length of Stay (Days): 3 Plans for Post Hospital Care: Home Review of Systems Review of Systems: all other systems reviewed are negative [facility] Medical History Medical History CKD (chronic kidney disease) stage 3, GFR 30-59 ml/min (Acute) Diabetes (Acute) HTN (hypertension) (Acute) Osteoarthritis (Acute) Rheumatoid aortitis (Acute) Surgical History Surgical History H/O shoulder surgery (Acute) History of hip replacement (Acute) S/P CABG x 3 (Acute) S/P CABG x 4 (Acute) Social History Social History Substance History: No History of Abuse Smoking Status: Former smoker How Often Do You Have a Drink Containing Alcohol: Monthly or less Recent Travel in [facility] within the Last 8 Weeks: No Recent Out of Country Travel within the Last 8 Weeks: No Immunization History Tetanus Immunization: Unsure Medications and Allergies Allergies Allergy/AdvReac Type Severity Reaction Status Date / Time penicillin G Allergy Severe Rash Verified 07/10/18 18:41 simvastatin Allergy Severe Rash Verified 07/10/18 18:41 aspirin AdvReac Severe HALLUCINATI Verified 07/10/18 18:41 ONS oxycodone AdvReac Severe HALLUCINATI Verified 07/10/18 18:41 ONS Home Medications Medication Instructions Recorded Confirmed Type aspirin [Aspir-81] 81 mg PO DAILY 07/10/18 07/10/18 History brimonidine 0.2 % EACH EYE TID 07/10/18 07/10/18 History doxepin 50 mg PO DAILY 07/10/18 07/10/18 History furosemide 20 mg PO BID 07/10/18 07/10/18 History insulin aspart U-100 8 unit SUBCUT TID 07/10/18 07/10/18 History insulin glulisine U-100 24 unit SUBCUT QAM 07/10/18 07/10/18 History isosorbide mononitrate 30 mg PO DAILY 07/10/18 07/10/18 History latanoprost 1 drp EACH EYE QPM 07/10/18 07/10/18 History lisinopril 40 mg PO DAILY 07/10/18 07/10/18 History metformin 500 mg PO BID 07/10/18 07/10/18 History metoprolol tartrate 25 mg PO BID 07/10/18 07/10/18 History nifedipine 90 mg PO DAILY 07/10/18 07/10/18 History nitroglycerin 0.4 mg SUBLINGUAL Q5-15M PRN 07/10/18 07/10/18 History pantoprazole 40 mg PO DAILY 07/10/18 07/10/18 History spironolactone 100 mg PO DAILY 07/10/18 07/10/18 History Active Medications: Active Medications Acetaminophen (Tylenol) 650 mg PO Q4H PRN PRN Reason: Temp > 100.4 Bisacodyl (Dulcolax Supp) 10 mg RECTAL DAILY PRN PRN Reason: SEVERE CONSITIPATION Dextrose (D50w Vial) 50 ml IV.PUSH UNSCH PRN PRN Reason: PER HYPOGLYCEMIA PROTOCOL Glucagon (Glucagon Inj) 1 mg OTHER PRN PRN PRN Reason: for Hypoglycemia Protocol Heparin Sodium (Porcine) (Heparin Inj) 5,000 units SQ Q8H TAMARA Ondansetron HCl (Zofran Inj) 4 mg IV.PUSH Q6H PRN PRN Reason: NAUSEA OR VOMITING Sodium Chloride (Ns Flush) 2 ml IV.FLUSH BID TAMARA Sodium Chloride (Ns Flush) 2 ml IV.FLUSH PRN PRN PRN Reason: FLUSH AFTER USING IV ACCESS Physical Exam Vital signs: Last Vital Signs Temp 98.1 F 07/10/18 23:00 Pulse 63 07/11/18 00:55 Resp 20 07/10/18 23:00 BP 144/77 H 07/11/18 00:00 Pulse Ox 99 07/10/18 23:00 Intake & Output 07/08/18 07/09/18 07/10/18 07/11/18 06:59 06:59 06:59 06:59 Intake Total 610 / 610 Balance 610 / 610 Weight 112.037 kg GENERAL: This is a well-nourished, well-developed patient, in no apparent distress. Wide-awake in the middle of the night because he stated he needs his BiPAP. CARDIOVASCULAR: Regular rate and rhythm without murmurs, gallops, or rubs. RESPIRATORY: Clear to auscultation. Breath sounds equal bilaterally. No wheezes , rales, or rhonchi. GASTROINTESTINAL: Abdomen soft, non-tender, nondistended. Normal active bowel sounds MUSCULOSKELETAL: Extremities without clubbing, cyanosis, or edema. NEURO: Alert & Oriented x4 to person, place, time, situation. Moves all ext x4 Results Labs CBC & Chem 7: 07/11/18 05:45 07/11/18 05:45 Capapril VTE Risk Assessment Annie VTE Risk Assessment: Moderate/High Risk (score >= 2) Annie Risk Assessment Model: Point Value = 1 Point Value = 2 Point Value = 3 Point Value = 5 Age 41-60 Minor surgery BMI > 25 kg/m2 Swollen legs Varicose veins or History of unexplained or recurrent spontaneous Oral contraceptives or hormone replacement Sepsis (< 1 month) Serious lung disease, including pneumonia (< 1 month) Abnormal pulmonary function Acute myocardial infarction Congestive heart failure (< 1 month) History of inflammatory bowel disease Medical patient at bed rest Age 61-74 Arthroscopic surgery Major open surgery (> 45 min) Laparoscopic surgery (> 45 min) Malignancy Confined to bed (> 72 hours) Immobilizing plaster cast Central venous access Age >= 75 History of VTE Family history of VTE Factor V Leiden Prothrombin [id number] Lupus anticoagulant Anticardiolipin antibodies Elevated serum homocysteine Heparin-induced thrombocytopenia Other congenital or acquired thrombophilia Stroke (< 1 month) Elective arthroplasty Hip, pelvis, or leg fracture Acute spinal cord injury (< 1 month) Prophylaxis Regimen: Total Risk Factor Score Risk Level Prophylaxis Regimen 0-1 Low Early ambulation 2 Moderate Order ONE of the following: *Sequential Compression Device (SCD) *Heparin 5000 units SQ BID 3-4 Higher Order ONE of the following medications: *Heparin 5000 units SQ TID *Enoxaparin/Lovenox 40 mg SQ daily (WT < 150 kg, CrCl > 30 mL/min) *Enoxaparin/Lovenox 30 mg SQ daily (WT < 150 kg, CrCl > 10-29 mL/min) *Enoxaparin/Lovenox 30 mg SQ BID (WT < 150 kg, CrCl > 30 mL/min) AND/OR *Sequential Compression Device (SCD) 5 or more Highest Order ONE of the following medications: *Heparin 5000 units SQ TID (Preferred with Epidurals) *Enoxaparin/Lovenox 40 mg SQ daily (WT < 150 kg, CrCl > 30 mL/min) *Enoxaparin/Lovenox 30 mg SQ daily (WT < 150 kg, CrCl > 10-29 mL/min) *Enoxaparin/Lovenox 30 mg SQ BID (WT < 150 kg, CrCl > 30 mL/min) AND *Sequential Compression Device (SCD) Assessment and Plan Plan Impression: acute renal failure. Likely secondary to medications versus rhabdo versus dehydration from chronic on and off diarrhea weakness due to renal failure anemia- as compared to prior labs sleep apnea Hypertension Diabetes Coronary artery disease status post CABG. Triple bypass in 2005, and quadruple bypass in 2011. States that he is due for angiogram on August 15, 2018 because of abnormal stress test done recently. Hyperlipidemia COPD. Recent diagnosis. Obstructive sleep apnea on CPAP at night History of renal stones Osteoarthritis Rheumatoid arthritis Plan: check ck oral hydration for now hold metformin, lisinopril, aldactone, lasix will hold statins if ck is elevated will follow hgb/hct in am pt denies acute bleed- stool for guiaic if he makes bm nephrology consult resume rest of home meds dvt prophylaxis with heparin gi prophylaxis on pantoprazole
[2018-07-11] MEDS ORDERED: Sodium Polystyrene Sulfonate/Sorbitol Liq 15 GM/60 ML UDC PO ONE (04:20)
[2018-07-11 06:23] LABS: Baso % (Auto) 0.6 % (0.0-2.0); Eos # (Auto) 0.1 th/mm3 (0.0-0.4); Hemoglobin 12.3 gm/dL (13.0-17.0); Lymph # (Auto) 1.8 th/mm3 (1.0-4.8); Lymph % (Auto) 28.2 % (9.0-44.0); Mean Corpuscular HGB Conc 34.1 % (32.0-36.0); Mean Corpuscular Hemoglobin 30.8 pg (27.0-34.0); Mean Corpuscular Volume 90.5 fL (80.0-100.0); Mean Platelet Volume 7.4 fL (7.0-11.0); Mono # (Auto) 0.4 th/mm3 (0.0-0.9); Mono % (Auto) 6.5 % (0.0-8.0); Neut # (Auto) 3.9 th/mm3 (1.8-7.7); Neut % (Auto) 62.7 % (16.0-70.0); Platelet Count 232 th/mm3 (150-450); Red Blood Count 3.98 mil/mm3 (4.50-5.90); Red Cell Distribution Width 13.5 % (11.6-17.2); White Blood Count 6.3 th/mm3 (4.0-11.0)
[2018-07-11 06:49] LABS: Calcium 8.4 mg/dL (8.5-10.1); Carbon Dioxide 18.6 meq/L (21.0-32.0); Potassium 4.9 meq/L (3.5-5.1)
[2018-07-11] MEDS: Heparin - SQ 10,000 UNITS/ML Vial SQ SCH ×2 (08:35→16:39)
[2018-07-11] MEDS: Isosorbide Mononitrate 30 MG ER 24HR Tablet (Imdur) PO SCH (08:35)
[2018-07-11] MEDS: Metoprolol Tartrate 25 MG Tablet PO SCH ×2 (08:35→21:07)
[2018-07-11] MEDS: Brimonidine 0.2% Opth Drops 5 ML Bottle EACH EYE SCH ×3 (08:35→17:12)
[2018-07-11] MEDS: INSULIN GLULISINE SQ SCH (08:39)
[2018-07-11] MEDS ORDERED: Sod Chloride 0.9% Inj 1,000 ML IV.CONT SCH (10:00)
--- NOTE | 2018-07-11 10:18 | P.CONNP ---
<Claudia Felix - Last Filed: 07/11/18 09:59> History of Present Illness Service: Nephrology Consult date: 07/11/18 Requesting Physician: Tera Escamilla Reason for Consult: Acute renal failure Primary Care Provider: [facility] History of Present Illness: Patient is a 62-year-old male with a past medical history of coronary artery disease, hypertension, sleep apnea, osteoarthritis, rheumatoid arthritis, CHF, hyperlipidemia. Sent from the [place] for evaluation of abnormal lab work. Patient reports that he had a routine appointment with a physical therapist, and was told that he "does not look right" and ended up having outpatient lab work today. He was found to have acute kidney injury with hyperkalemia. Does not report history of chronic kidney disease and is not followed by a caddie supervisor outpatient. Nephrology is consulted for acute kidney injury with a creatinine of 4.1 which has improved today at 3.8 and potassium level at admission of 5.9. Hyperkalemia was treated and potassium level this morning at 4.9. Patient denies taking anything over the counter for pain other than Tylenol. Does not report decreased intake or GI losses. At home is on diuretics for management of lower extremity edema and CHF which are on hold now. Lisinopril and metformin have also been placed on hold. Patient denies any shortness of breath , chest pain, nausea, vomiting or dysuria. Reports sensation of weakness in his legs as well as fatigue. Review of Systems All other systems reviewed negative except as stated in HPI PMFSH - History History Provided By: Patient - Medical History Medical History: Medical History (Last Updated 07/10/18 @ 19:48 by Elizabeth Soliman RN) CKD (chronic kidney disease) stage 3, GFR 30-59 ml/min Diabetes HTN (hypertension) Osteoarthritis Rheumatoid aortitis - Surgical History Surgical History: Surgical History (Last Updated 07/10/18 @ 17:38 by Dixie Etienne RN) H/O shoulder surgery History of hip replacement S/P CABG x 3 S/P CABG x 4 - Tobacco History Smoking Status: Former smoker - Alcohol History How Often Do You Have a Drink Containing Alcohol: Monthly or less - Substance Use History Substance History: No History of Abuse - Travel History Recent Travel in the [place] Within the Last 8 Weeks: No Recent Travel Out of the Country Within the Last 8 Weeks: No - Immunization History Tetanus Immunization: Unsure Medications and Allergies Allergies Allergy/AdvReac Type Severity Reaction Status Date / Time penicillin G Allergy Severe Rash Verified 07/10/18 18:41 simvastatin Allergy Severe Rash Verified 07/10/18 18:41 aspirin AdvReac Severe HALLUCINATI Verified 07/10/18 18:41 ONS oxycodone AdvReac Severe HALLUCINATI Verified 07/10/18 18:41 ONS Home Medications Medication Instructions Recorded Confirmed Type aspirin [Aspir-81] 81 mg PO DAILY 07/10/18 07/10/18 History brimonidine 0.2 % EACH EYE TID 07/10/18 07/10/18 History doxepin 50 mg PO DAILY 07/10/18 07/10/18 History furosemide 20 mg PO BID 07/10/18 07/10/18 History insulin aspart U-100 8 unit SUBCUT TID 07/10/18 07/10/18 History insulin glulisine U-100 24 unit SUBCUT QAM 07/10/18 07/10/18 History isosorbide mononitrate 30 mg PO DAILY 07/10/18 07/10/18 History latanoprost 1 drp EACH EYE QPM 07/10/18 07/10/18 History lisinopril 40 mg PO DAILY 07/10/18 07/10/18 History metformin 500 mg PO BID 07/10/18 07/10/18 History metoprolol tartrate 25 mg PO BID 07/10/18 07/10/18 History nifedipine 90 mg PO DAILY 07/10/18 07/10/18 History nitroglycerin 0.4 mg SUBLINGUAL Q5-15M PRN 07/10/18 07/10/18 History pantoprazole 40 mg PO DAILY 07/10/18 07/10/18 History spironolactone 100 mg PO DAILY 07/10/18 07/10/18 History Active Medications: Active Medications Acetaminophen (Tylenol) 650 mg PO Q4H PRN PRN Reason: Temp > 100.4 Aspirin (Ecotrin) 81 mg PO DAILY TAMARA Last Admin: 07/11/18 08:35 Dose: 81 mg Atorvastatin Calcium (Lipitor) 40 mg PO HS TAMARA Bisacodyl (Dulcolax Supp) 10 mg RECTAL DAILY PRN PRN Reason: SEVERE CONSITIPATION Brimonidine Tartrate (Alphagan 0.2% Opth Drops) 1 drops EACH EYE TID [facility] Last Admin: 07/11/18 08:35 Dose: 1 drops Dextrose (D50w Vial) 50 ml IV.PUSH UNSCH PRN PRN Reason: PER HYPOGLYCEMIA PROTOCOL Doxepin HCl (Sinequan) 50 mg PO DAILY [facility] Last Admin: 07/11/18 08:40 Dose: 50 mg Glucagon (Glucagon Inj) 1 mg OTHER PRN PRN PRN Reason: for Hypoglycemia Protocol Heparin Sodium (Porcine) (Heparin Inj) 5,000 units SQ Q8H [facility] Last Admin: 07/11/18 08:35 Dose: 5,000 units Sodium Chloride (Ns Inj) 1,000 mls @ 42 mls/hr IV.CONT .[id number] [facility] Insulin Aspart (Novolog Inj) 8 units SQ TID [facility] Last Admin: 07/11/18 08:35 Dose: 8 units Isosorbide Mononitrate (Imdur) 30 mg PO DAILY [facility] Last Admin: 07/11/18 08:35 Dose: 30 mg Latanoprost (Xalatan 0.005% Opth Drops) 1 drop EACH EYE QPM [facility] Metoprolol Tartrate (Lopressor) 25 mg PO BID [facility] Last Admin: 07/11/18 08:35 Dose: 25 mg Nifedipine (Procardia Xl) 90 mg PO DAILY [facility] Last Admin: 07/11/18 08:35 Dose: 90 mg Nitroglycerin (Nitrostat Sl (Override)) 0.4 mg SL Q5M PRN PRN Reason: ANGINA Ondansetron HCl (Zofran Inj) 4 mg IV.PUSH Q6H PRN PRN Reason: NAUSEA OR VOMITING Pantoprazole Sodium (Protonix) 40 mg PO DAILY [facility] Last Admin: 07/11/18 08:36 Dose: 40 mg Insulin Glulisine U- 100 [Insulin Glulisine U-100] 24 Unit 0 each SQ DAILY [facility] Last Admin: 07/11/18 08:39 Dose: Not Given Sodium Chloride (Ns Flush) 2 ml IV.FLUSH BID [facility] Last Admin: 07/11/18 08:38 Dose: 2 ml Sodium Chloride (Ns Flush) 2 ml IV.FLUSH PRN PRN PRN Reason: FLUSH AFTER USING IV ACCESS Exam Vital signs: Vital Signs 07/10/18 17:08 07/10/18 17:36 07/10/18 19:32 Temperature 97.3 F L Pulse Rate 61 58 L 74 Respiratory Rate 20 20 16 Blood Pressure 120/61 127/82 Pulse Oximetry 99 98 07/10/18 23:00 07/11/18 00:00 07/11/18 00:55 Temperature 98.1 F Pulse Rate 76 63 Respiratory Rate 20 Blood Pressure 184/91 H 144/77 H Pulse Oximetry 99 07/11/18 03:06 07/11/18 07:42 Temperature 97.7 F Pulse Rate 78 56 L Respiratory Rate 16 18 Blood Pressure 138/75 116/59 L Pulse Oximetry 100 100 Intake & Output 07/10/18 07/11/18 07/11/18 18:59 06:59 18:59 Intake Total 1090 / 1090 Balance 1090 / 1090 Weight 112.037 kg 114 kg Intake: IV 610 / 610 Calcium Gluconate Inj 1 GM In 110 / 110 NS Inj 100 ML @ 110 mls/hr IV. SIG ONCE ONE Rx#:[id number] NS Inj 500 ML @ 1000 mls/hr IV. 500 / 500 SIG BOLUS TAMARA Rx#:[id number] Oral 480 / 480 Other: # Voids 2 # Bowel Movements 1 Weight On Admission 114 kg Narrative: GENERAL: alert and oriented. NAD SKIN: Warm and dry. NECK: Supple, trachea midline. No JVD. CARDIOVASCULAR: Regular rate and rhythm without murmurs, gallops, or rubs. RESPIRATORY: Breath sounds equal bilaterally. No accessory muscle use. GASTROINTESTINAL: Abdomen soft, non-tender, nondistended. +BS MUSCULOSKELETAL: No cyanosis, or edema. BACK: Nontender without obvious deformity. No CVA tenderness. Results - Lab Results 07/11/18 05:45 07/11/18 05:45 Most recent lab results Calcium 8.4 mg/dL (8.5-10.1) L 07/11/18 05:45 Magnesium 1.9 mg/dL (1.5-2.5) 07/10/18 17:51 Assessment and Plan - Assessment (1) Acute renal failure Code(s): N17.9 - Acute kidney failure, unspecified Status: Acute Plan: Acute kidney injury with a creatinine of 4.1 which has improved today at 3.8 and potassium level at admission of 5.9. Hyperkalemia was treated and potassium level this morning at 4.9. Has past medical history of chronic kidney disease with a creatinine of 1.24 and GFR 59ml/min in December 2016, most likely from hypertension/renovascular disease or diabetes LISA under investigation possibly prerenal vs ATN from medications or perhaps over diuresis. Recommend to continue to hold diuretics, HECTOR inhibitor, and metformin. Will start gently hydration and oral fluids encouraged. Will need to watch closely for fluid overload. Diet changed to renal/cardiac with low potassium. Will monitor strict I+O's and follow BMP. Renal ultrasound, Serology, UA, and urine studies ordered. labs in AM. (2) Acute hyperkalemia Code(s): E87.5 - Hyperkalemia Status: Acute Plan: Resolved with treatment. Diet changed to renal/ cardiac and low potassium. <Sumi Roa - Last Filed: 07/11/18 20:19> History of Present Illness Primary Care Provider: [facility] - Medical History Medical History: Medical History (Last Updated 07/10/18 @ 19:48 by Elizabeth Soliman RN) CKD (chronic kidney disease) stage 3, GFR 30-59 ml/min Diabetes HTN (hypertension) Osteoarthritis Rheumatoid aortitis - Surgical History Surgical History: Surgical History (Last Updated 07/10/18 @ 17:38 by Dixie Etienne RN) H/O shoulder surgery History of hip replacement S/P CABG x 3 S/P CABG x 4 Medications and Allergies Active Medications: Active Medications Acetaminophen (Tylenol) 650 mg PO Q4H PRN PRN Reason: Temp > 100.4 Aspirin (Ecotrin) 81 mg PO DAILY [facility] Last Admin: 07/11/18 08:35 Dose: 81 mg Atorvastatin Calcium (Lipitor) 40 mg PO HS [facility] Bisacodyl (Dulcolax Supp) 10 mg RECTAL DAILY PRN PRN Reason: SEVERE CONSITIPATION Brimonidine Tartrate (Alphagan 0.2% Opth Drops) 1 drops EACH EYE TID [facility] Last Admin: 07/11/18 17:12 Dose: 1 drops Dextrose (D50w Vial) 50 ml IV.PUSH UNSCH PRN PRN Reason: PER HYPOGLYCEMIA PROTOCOL Doxepin HCl (Sinequan) 50 mg PO DAILY [facility] Last Admin: 07/11/18 08:40 Dose: 50 mg Glucagon (Glucagon Inj) 1 mg OTHER PRN PRN PRN Reason: for Hypoglycemia Protocol Heparin Sodium (Porcine) (Heparin Inj) 5,000 units SQ Q8H [facility] Last Admin: 07/11/18 16:39 Dose: 5,000 units Sodium Chloride (Ns Inj) 1,000 mls @ 100 mls/hr IV.CONT .Q10H [facility] Last Admin: 07/11/18 16:41 Dose: 100 mls/hr Insulin Aspart (Novolog Inj) 8 units SQ TID [facility] Last Admin: 07/11/18 17:12 Dose: 8 units Isosorbide Mononitrate (Imdur) 30 mg PO DAILY [facility] Last Admin: 07/11/18 08:35 Dose: 30 mg Latanoprost (Xalatan 0.005% Opth Drops) 1 drop EACH EYE QPM [facility] Metoprolol Tartrate (Lopressor) 25 mg PO BID [facility] Last Admin: 07/11/18 08:35 Dose: 25 mg Nifedipine (Procardia Xl) 90 mg PO DAILY [facility] Last Admin: 07/11/18 08:35 Dose: 90 mg Nitroglycerin (Nitrostat Sl (Override)) 0.4 mg SL Q5M PRN PRN Reason: ANGINA Ondansetron HCl (Zofran Inj) 4 mg IV.PUSH Q6H PRN PRN Reason: NAUSEA OR VOMITING Pantoprazole Sodium (Protonix) 40 mg PO DAILY [facility] Last Admin: 07/11/18 08:36 Dose: 40 mg Insulin Glulisine U- 100 [Insulin Glulisine U-100] 24 Unit 0 each SQ DAILY [facility] Last Admin: 07/11/18 08:39 Dose: Not Given Sodium Chloride (Ns Flush) 2 ml IV.FLUSH BID [facility] Last Admin: 07/11/18 08:38 Dose: 2 ml Sodium Chloride (Ns Flush) 2 ml IV.FLUSH PRN PRN PRN Reason: FLUSH AFTER USING IV ACCESS Exam Vital signs: Vital Signs 07/10/18 23:00 07/11/18 00:00 07/11/18 00:55 Temperature 98.1 F Pulse Rate 76 63 Respiratory Rate 20 Blood Pressure 184/91 H 144/77 H Pulse Oximetry 99 07/11/18 03:06 07/11/18 07:42 07/11/18 08:00 Temperature 97.7 F Pulse Rate 78 56 L 56 L Respiratory Rate 16 18 Blood Pressure 138/75 116/59 L Pulse Oximetry 100 100 07/11/18 12:00 07/11/18 16:00 Temperature 98.4 F 97.6 F Pulse Rate 64 58 L Respiratory Rate 18 18 Blood Pressure 115/67 103/56 L Pulse Oximetry 97 100 Intake & Output 07/11/18 07/11/18 07/12/18 06:59 18:59 06:59 Intake Total 1090 / 1090 2328 / 2328 Output Total 800 / 800 Balance 1090 / 1090 1528 / 1528 Weight 114 kg Intake: IV 610 / 610 168 / 168 NS Inj 1,000 ML @ 42 mls/hr IV. 168 / 168 CONT .[id number] [facility] Rx#:[id number] Calcium Gluconate Inj 1 GM In 110 / 110 NS Inj 100 ML @ 110 mls/hr IV. SIG ONCE ONE Rx#:[id number] NS Inj 500 ML @ 1000 mls/hr IV. 500 / 500 SIG BOLUS [facility] Rx#:[id number] Oral 480 / 480 2160 / 2160 Output: Urine 800 / 800 Other: # Voids 2 Date of Last Bowel Movement 07/10/18 # Bowel Movements 1 Weight On Admission 114 kg Results - Lab Results 07/11/18 05:45 07/11/18 05:45 Most recent lab results Calcium 8.4 mg/dL (8.5-10.1) L 07/11/18 05:45 Magnesium 1.9 mg/dL (1.5-2.5) 07/10/18 17:51 Assessment and Plan - Assessment (1) Acute renal failure Code(s): N17.9 - Acute kidney failure, unspecified Status: Acute Plan: Patient seen and examined, agree with above. Patient with chronic kidney disease and develop LISA. Continue IVF and follow the urine out put and BMP. (2) Acute hyperkalemia Code(s): E87.5 - Hyperkalemia Status: Acute
--- NOTE | 2018-07-11 11:20 | US ---
EXAM DATE: 07/11/2018 10:50 AM EST AGE/SEX: 62 years / Male INDICATIONS: Increased BUN/Creatinine. CLINICAL DATA: This is the patient's initial encounter. Patient reports that signs and symptoms have been present for 1 day and indicates a pain score of 0/10. MEDICAL/SURGICAL HISTORY: Diabetes. Hypertension. Rheumatoid arthritis. Chronic kidney disea se. Coronary artery disease. COPD. Obstructive sleep apnea. CABG. Right shoulder AC joint repair. Ri ght hip replacement. COMPARISON: [facility] [place], [place] ABDOMEN & PELVIS W/O CONTRAST, 10/10/2014. . MEASUREMENTS: Right Kidney:__12.2 x 5.5 x 6.7 cm Left Kidney:__13.3 x 5.9 x 5.7 cm FINDINGS: Right Kidney: Increased echogenicity. No mass or hydronephrosis. Left Kidney: Increased echogenicity. No mass or hydronephrosis. Small 1.9 cm cyst. Bladder: Within normal limits given the degree of distension. Other: None. CONCLUSION: 1. Echogenic thin cortex suggesting chronic renal disease. 2. No hydronephrosis Electronically signed by: Shaggy Jerry MD Board Certified Radiologist 07/11/2018 11:18 AM EST
--- NOTE | 2018-07-11 15:09 | P.PNIM ---
Subjective Interval history: Primary Care Physician: [facility] History from patient, ER physician communication, and review of medical records. Patient reported that [facility] was [facility] [place] [facility] [place] regular appointment with the physical therapist. Physical therapist noted that patient was not looking well and therefore called the primary care nurse who examined him and thought that he was not looking well. He then was evaluated by his doctor in the clinic agreed with the nurse assessment and therefore did blood work at the clinic. The blood work revealed acute renal failure for which he was sent to the hospital. Patient also reports that for the past 2 weeks, he has been feeling generally weak. He says was simply not able to walk with his walker anymore. He also reports of shortness of breath. Denies any nausea or vomiting or diarrhea. Denies any fever/cough. Denies any urinary burning or pain on urination or frequent urination. Denies any hematemesis/hematochezia/melena/hematuria. He states that he however has soft stools on and off and loose stools. States this has been chronic. Patient is not aware of any prior history of renal failure. He does not have any flank pain. He is on statins at home. However nothing new medications. He is also taking metformin, spironolactone, furosemide. 1-4 seen lying in bed had to be treated with KAYEXALATE FOR HYPERKALEMIA LAST NIGHT US REVIEWED NO OBSTRUCTION OR HYDRONEPHROSIS BUT MEDICAL RENAL DISEASE AM LABS CONTINUE IV FLUIDS AM LABS SEEN BY NEPHROLOGY Physical Exam Vital signs: Vital Signs 07/10/18 17:08 07/10/18 17:36 07/10/18 19:32 Temperature 97.3 F L Pulse Rate 61 58 L 74 Respiratory Rate 20 20 16 Blood Pressure 120/61 127/82 Pulse Oximetry 99 98 07/10/18 23:00 07/11/18 00:00 07/11/18 00:55 Temperature 98.1 F Pulse Rate 76 63 Respiratory Rate 20 Blood Pressure 184/91 H 144/77 H Pulse Oximetry 99 07/11/18 03:06 07/11/18 07:42 07/11/18 08:00 Temperature 97.7 F Pulse Rate 78 56 L 56 L Respiratory Rate 16 18 Blood Pressure 138/75 116/59 L Pulse Oximetry 100 100 Intake & Output 07/10/18 07/11/18 07/11/18 18:59 06:59 18:59 Intake Total 1090 / 1090 Balance 1090 / 1090 Weight 112.037 kg 114 kg Intake: IV 610 / 610 Calcium Gluconate Inj 1 GM In 110 / 110 NS Inj 100 ML @ 110 mls/hr IV. SIG ONCE ONE Rx#:[id number] NS Inj 500 ML @ 1000 mls/hr IV. 500 / 500 SIG BOLUS TAMARA Rx#:[id number] Oral 480 / 480 Other: # Voids 2 Date of Last Bowel Movement 07/10/18 # Bowel Movements 1 Weight On Admission 114 kg Narrative: GENERAL: alert and oriented. NAD SKIN: Warm and dry. Head is normocephalic atraumatic PERRLA EOMI Oral mucosa is moist tongue is midline NECK: Supple, trachea midline. No JVD. CARDIOVASCULAR: Regular rate and rhythm without murmurs, gallops, or rubs. RESPIRATORY: Breath sounds equal bilaterally. No accessory muscle use. GASTROINTESTINAL: Abdomen soft, non-tender, nondistended. +BS obese MUSCULOSKELETAL: No cyanosis, or edema. BACK: Nontender without obvious deformity. No CVA tenderness. Awake alert and oriented x3 Insight and judgment is good Mood and behaviors appropriate Results - Labs CBC & Chem 7: 07/11/18 05:45 07/11/18 05:45 Laboratory Results - last 24 hr 07/10/18 07/10/18 07/11/18 17:51 17:51 03:12 WBC 7.1 RBC 3.86 L Hgb 12.2 L Hct 35.4 L MCV 91.8 MCH 31.7 MCHC 34.6 RDW 13.7 Plt Count 230 MPV 7.3 Neut % (Auto) 66.1 Lymph % (Auto) 23.4 Terry % (Auto) 7.0 Eos % (Auto) 2.7 Baso % (Auto) 0.8 Neut # (Auto) 4.7 Lymph # (Auto) 1.7 Terry # (Auto) 0.5 Eos # (Auto) 0.2 Baso # (Auto) 0.1 WBC Differential . Differential Comment Auto diff final Sodium 134 L Potassium 5.9 H Chloride 107 Carbon Dioxide 18.6 L Anion Gap 8 BUN 51 H Creatinine 4.17 H Estimated GFR 15 L POC Glucose 165 H Random Glucose 150 H Calcium 8.6 Magnesium 1.9 Total Bilirubin 0.6 AST 13 L ALT 32 Alkaline Phosphatase 123 H Total Creatine Kinase Total Protein 8.3 H Albumin 3.7 07/11/18 07/11/18 07/11/18 05:45 05:45 12:20 WBC 6.3 RBC 3.98 L Hgb 12.3 L Hct 36.0 L MCV 90.5 MCH 30.8 MCHC 34.1 RDW 13.5 Plt Count 232 MPV 7.4 Neut % (Auto) 62.7 Lymph % (Auto) 28.2 Terry % (Auto) 6.5 Eos % (Auto) 2.0 Baso % (Auto) 0.6 Neut # (Auto) 3.9 Lymph # (Auto) 1.8 Terry # (Auto) 0.4 Eos # (Auto) 0.1 Baso # (Auto) 0.0 WBC Differential . Differential Comment Auto diff final Sodium 134 L Potassium 4.9 D Chloride 106 Carbon Dioxide 18.6 L Anion Gap 9 BUN 53 H Creatinine 3.80 H Estimated GFR 16 L POC Glucose 211 H Random Glucose 145 H Calcium 8.4 L Magnesium Total Bilirubin AST ALT Alkaline Phosphatase Total Creatine Kinase 44 Total Protein Albumin - Imaging Impressions Abdomen/Bladder Ultrasound 07/11/18 00:00 CONCLUSION: 1. Echogenic thin cortex suggesting chronic renal disease. 2. No hydronephrosis - Procedures NONE Assessment and Plan - Plan acute renal failure. Likely secondary to medications versus dehydration from chronic on and off diarrhea-medical renal disease and diabetes weakness due to renal failure increase activity anemia- as compared to prior labs sleep apnea Hyperkalemia treated with Kayexalate Hypertension Diabetes Coronary artery disease status post CABG. Triple bypass in 2005, and quadruple bypass in 2011. States that he is due for angiogram on August 15, 2018 because of abnormal stress test done recently. Hyperlipidemia COPD. Recent diagnosis. Obstructive sleep apnea on CPAP at night History of renal stones Osteoarthritis Rheumatoid arthritis Plan: check ck oral hydration for now hold metformin, lisinopril, aldactone, lasix will follow hgb/hct in am pt denies acute bleed- stool for guaiac if he makes bm nephrology consult has had ultrasounds of the kidneys resume rest of home meds Will get physical therapy and occupational therapy to eval and dvt prophylaxis with heparin gi prophylaxis on pantoprazole Code Status: Full code Discussed Condition With: RN and patient and case management Discharge Planning: Pending improvement of renal functions and clearance by nephrology
[2018-07-11] MEDS: Sod Chloride 0.9% Inj 1,000 ML IV.CONT SCH (16:41)
--- NOTE | 2018-07-11 18:13 | ECG ---
Date Performed: 07/10/2018 Time Performed: 18:20:01 PTAGE: 62 years EKG: SINUS BRADYCARDIA LATERAL MYOCARDIAL INFARCTION INFERIOR MYOCARDIAL INFARCTION Compared to previous tracing, evidence of an inferior Myocardial infarction is new ABNORMAL ECG PREVIOUS TRACING : 04/02/2012 02.03 DOCTOR: Joe Shea Interpretating Date/Time 07/11/2018 18:12:35
[2018-07-11 18:26] LABS: Creatinine,Urine Random 165 mg/dL (27-300); Sodium,Urine Random 48 meq/L
[2018-07-11 18:39] LABS: Bilirubin,Urine Negative (Negative); Clarity,Urine Clear (Clear); Color,Urine Yellow (Yellw/Straw); Glucose,Urine (UA) Negative (Negative); Hyaline Casts,Urine 1 /lpf (0-3); Leukocyte Esterase,Urine Negative (Negative); Nitrite,Urine Negative (Negative); Specific Gravity,Urine 1.013 (1.002-1.035)
[2018-07-11] MEDS: Latanoprost 0.005% Opth Drops 2.5 ML Bottle EACH EYE SCH (21:07)
[2018-07-12] MEDS: Sod Chloride 0.9% Inj 1,000 ML IV.CONT SCH ×4 (01:24→23:59)
[2018-07-12] MEDS: Heparin - SQ 10,000 UNITS/ML Vial SQ SCH ×3 (01:24→17:06)
[2018-07-12 07:17] LABS: Baso % (Auto) 0.8 % (0.0-2.0); Eos # (Auto) 0.1 th/mm3 (0.0-0.4); Hematocrit 31.9 % (39.0-51.0); Hemoglobin 10.6 gm/dL (13.0-17.0); Lymph # (Auto) 1.4 th/mm3 (1.0-4.8); Lymph % (Auto) 31.6 % (9.0-44.0); Mean Corpuscular HGB Conc 33.3 % (32.0-36.0); Mean Corpuscular Hemoglobin 30.6 pg (27.0-34.0); Mean Corpuscular Volume 91.8 fL (80.0-100.0); Mean Platelet Volume 7.8 fL (7.0-11.0); Mono # (Auto) 0.3 th/mm3 (0.0-0.9); Mono % (Auto) 6.9 % (0.0-8.0); Neut # (Auto) 2.6 th/mm3 (1.8-7.7); Neut % (Auto) 58.7 % (16.0-70.0); Platelet Count 181 th/mm3 (150-450); Red Blood Count 3.48 mil/mm3 (4.50-5.90); Red Cell Distribution Width 13.7 % (11.6-17.2); White Blood Count 4.4 th/mm3 (4.0-11.0)
[2018-07-12 07:47] LABS: Alanine Aminotransferase 22 U/L (12-78); Albumin 3.1 g/dL (3.4-5.0); Anion Gap 8 meq/L (5-15); Aspartate Aminotransferase 10 U/L (15-37); Blood Urea Nitrogen 49 mg/dL (7-18); Calcium 7.8 mg/dL (8.5-10.1); Carbon Dioxide 19.8 meq/L (21.0-32.0); Chloride 109 meq/L (98-107); Glomerular Filtration Rate 21 mL/min (>89); Glucose,Random 196 mg/dL (74-106); Magnesium 1.8 mg/dL (1.5-2.5); Phosphorus 4.5 mg/dL (2.5-4.9); Potassium 4.9 meq/L (3.5-5.1); Sodium 137 meq/L (136-145)
[2018-07-12 07:48] LABS: Alkaline Phosphatase 103 U/L (45-117); Complement C3 125 mg/dL (90-180); Free T4 (Free Thyroxine) 0.95 ng/dL (0.76-1.46); Total Protein 7.1 g/dL (6.4-8.2)
[2018-07-12] MEDS: Brimonidine 0.2% Opth Drops 5 ML Bottle EACH EYE SCH ×3 (08:34→17:06)
[2018-07-12] MEDS: Isosorbide Mononitrate 30 MG ER 24HR Tablet (Imdur) PO SCH (08:34)
[2018-07-12] MEDS: Metoprolol Tartrate 25 MG Tablet PO SCH ×2 (08:34→21:12)
[2018-07-12] MEDS: INSULIN GLULISINE SQ SCH (08:37)
--- NOTE | 2018-07-12 14:35 | P.PNNP ---
Subjective Interval history: Tired today, no acute complaints Physical Exam Vital signs: Vital Signs 07/11/18 16:00 07/11/18 20:00 07/12/18 00:00 Temperature 97.6 F 98.6 F 97.1 F L Pulse Rate 58 L 75 57 L Respiratory Rate 18 16 18 Blood Pressure 103/56 L 142/68 H 103/70 Pulse Oximetry 100 98 98 07/12/18 04:00 07/12/18 07:46 07/12/18 08:17 Temperature 97.5 F L 97.8 F Pulse Rate 57 L 63 54 L Respiratory Rate 16 18 Blood Pressure 104/50 L 130/65 Pulse Oximetry 98 99 07/12/18 11:39 07/12/18 12:00 Temperature 97.8 F Pulse Rate 51 L 55 L Respiratory Rate 18 Blood Pressure 103/56 L Pulse Oximetry 99 Intake & Output 07/11/18 07/12/18 07/12/18 18:59 06:59 18:59 Intake Total 2328 / 2328 1360 / 1360 1000 / 1000 Output Total 800 / 800 795 / 795 Balance 1528 / 1528 565 / 565 1000 / 1000 Weight 115.394 kg Intake: IV 168 / 168 1000 / 1000 1000 / 1000 NS Inj 1,000 ML @ 100 mls/hr IV 168 / 168 1000 / 1000 1000 / 1000 .CONT .Q10H [facility] Rx#:[id number] Oral 2160 / 2160 360 / 360 Output: Urine 800 / 800 795 / 795 Other: Date of Last Bowel Movement 07/10/18 07/10/18 07/10/18 - Constitutional no acute distress - Routine HEENT Exam Head: Present: normocephalic - Routine Neck Exam Present: supple - Routine Respiratory Exam Present: decreased breath sounds - Routine Cardiovascular Exam Present: RRR - Routine Abdominal Exam Present: soft - Routine Skin Exam Present: intact - Routine Neurological Exam Present: alert, oriented X3 - Detailed Neurological Exam: Coma Scale Eye Opening: Spontaneous - Routine Psychiatric Exam Present: normal affect, normal thought process Assessment and Plan - Assessment (1) Acute renal failure Code(s): N17.9 - Acute kidney failure, unspecified Status: Acute Plan: LISA on CKD Renal ultrasound with thin cortex, suggestive of CKD LISA likely due to volume depletion - improving with IVFs Creatinine 3.8 -> 3.0 >2L UOP Renal function improving, continue IVFs (2) Acute hyperkalemia Code(s): E87.5 - Hyperkalemia Status: Acute Plan: Resolved with treatment. Diet changed to renal/ cardiac and low potassium.
--- NOTE | 2018-07-12 15:20 | P.PNIM ---
Subjective Interval history: Primary Care Physician: [facility] History from patient, ER physician communication, and review of medical records. Patient reported that he was at the [place] [facility] for his regular appointment with the physical therapist. Physical therapist noted that patient was not looking well and therefore called the primary care nurse who examined him and thought that he was not looking well. He then was evaluated by his doctor in the clinic agreed with the nurse assessment and therefore did blood work at the clinic. The blood work revealed acute renal failure for which he was sent to the hospital. Patient also reports that for the past 2 weeks, he has been feeling generally weak. He says was simply not able to walk with his walker anymore. He also reports of shortness of breath. Denies any nausea or vomiting or diarrhea. Denies any fever/cough. Denies any urinary burning or pain on urination or frequent urination. Denies any hematemesis/hematochezia/melena/hematuria. He states that he however has soft stools on and off and loose stools. States this has been chronic. Patient is not aware of any prior history of renal failure. He does not have any flank pain. He is on statins at home. However nothing new medications. He is also taking metformin, spironolactone, furosemide. 1-4 seen lying in bed had to be treated with KAYEXALATE FOR HYPERKALEMIA LAST NIGHT US REVIEWED NO OBSTRUCTION OR HYDRONEPHROSIS BUT MEDICAL RENAL DISEASE AM LABS CONTINUE IV FLUIDS AM LABS SEEN BY NEPHROLOGY 1-5 SEEN LYING IN BED SOME IMPROVEMENT IN RENAL FUNCTIONS WITH FLUIDS AM LABS DW RN AND PT AND CM NO SOB, NO CHEST PAIN, NO PALPITATIONS, NO HEADACHES, SLEPT OK Physical Exam Vital signs: Vital Signs 07/11/18 16:00 07/11/18 20:00 07/12/18 00:00 Temperature 97.6 F 98.6 F 97.1 F L Pulse Rate 58 L 75 57 L Respiratory Rate 18 16 18 Blood Pressure 103/56 L 142/68 H 103/70 Pulse Oximetry 100 98 98 07/12/18 04:00 07/12/18 07:46 07/12/18 08:17 Temperature 97.5 F L 97.8 F Pulse Rate 57 L 63 54 L Respiratory Rate 16 18 Blood Pressure 104/50 L 130/65 Pulse Oximetry 98 99 07/12/18 11:39 07/12/18 12:00 Temperature 97.8 F Pulse Rate 51 L 55 L Respiratory Rate 18 Blood Pressure 103/56 L Pulse Oximetry 99 Intake & Output 07/11/18 07/12/18 07/12/18 18:59 06:59 18:59 Intake Total 2328 / 2328 1360 / 1360 1000 / 1000 Output Total 800 / 800 795 / 795 Balance 1528 / 1528 565 / 565 1000 / 1000 Weight 115.394 kg Intake: IV 168 / 168 1000 / 1000 1000 / 1000 NS Inj 1,000 ML @ 100 mls/hr IV 168 / 168 1000 / 1000 1000 / 1000 .CONT .Q10H [facility] Rx#:[id number] Oral 2160 / 2160 360 / 360 Output: Urine 800 / 800 795 / 795 Other: Date of Last Bowel Movement 07/10/18 07/10/18 07/10/18 Narrative: GENERAL: alert and oriented. NAD SKIN: Warm and dry. Head is normocephalic atraumatic PERRLA EOMI Oral mucosa is moist tongue is midline NECK: Supple, trachea midline. No JVD. CARDIOVASCULAR: Regular rate and rhythm without murmurs, gallops, or rubs. RESPIRATORY: Breath sounds equal bilaterally. No accessory muscle use. GASTROINTESTINAL: Abdomen soft, non-tender, nondistended. +BS obese MUSCULOSKELETAL: No cyanosis, or edema. BACK: Nontender without obvious deformity. No CVA tenderness. Awake alert and oriented x3 Insight and judgment is good Mood and behaviors appropriate Results - Labs CBC & Chem 7: 07/12/18 05:35 07/12/18 05:35 Laboratory Results - last 24 hr 07/11/18 07/11/18 07/11/18 16:35 16:45 16:45 WBC RBC Hgb Hct MCV MCH MCHC RDW Plt Count MPV Neut % (Auto) Lymph % (Auto) [place] % (Auto) Eos % (Auto) Baso % (Auto) Neut # (Auto) Lymph # (Auto) [place] # (Auto) Eos # (Auto) Baso # (Auto) WBC Differential Differential Comment Sodium Potassium Chloride Carbon Dioxide Anion Gap BUN Creatinine Estimated GFR POC Glucose 110 Random Glucose Hemoglobin A1c Calcium Phosphorus Magnesium Total Bilirubin AST ALT Alkaline Phosphatase Total Protein Albumin TSH Free T4 Urine Color Urine Clarity Urine pH Ur Specific [place] Urine Protein Urine Glucose (UA) Urine Ketones Urine Occult Blood Urine Nitrate Urine Bilirubin Urine Urobilinogen Ur Leukocyte Esterase Hyaline Casts Granular Casts Micro UA Comment Ur Microscopic Review Urine Culture Comments Urine Osmolality 391 Ur Random Creatinine 165 Ur Random Sodium 48 Complement C3 Complement C4 07/11/18 07/11/18 07/12/18 16:45 21:04 05:35 WBC 4.4 RBC 3.48 L Hgb 10.6 L Hct 31.9 L MCV 91.8 MCH 30.6 MCHC 33.3 RDW 13.7 Plt Count 181 MPV 7.8 Neut % (Auto) 58.7 Lymph % (Auto) 31.6 [place] % (Auto) 6.9 Eos % (Auto) 2.0 Baso % (Auto) 0.8 Neut # (Auto) 2.6 Lymph # (Auto) 1.4 [place] # (Auto) 0.3 Eos # (Auto) 0.1 Baso # (Auto) 0.0 WBC Differential . Differential Comment Auto diff final Sodium Potassium Chloride Carbon Dioxide Anion Gap BUN Creatinine Estimated GFR POC Glucose 174 H Random Glucose Hemoglobin A1c Calcium Phosphorus Magnesium Total Bilirubin AST ALT Alkaline Phosphatase Total Protein Albumin TSH Free T4 Urine Color Yellow Urine Clarity Clear Urine pH 5.0 Ur Specific [place] 1.013 Urine Protein Negative Urine Glucose (UA) Negative Urine Ketones Negative Urine Occult Blood Negative Urine Nitrate Negative Urine Bilirubin Negative Urine Urobilinogen Less than 2 Ur Leukocyte Esterase Negative Hyaline Casts 1 Granular Casts 5 Micro UA Comment Culture not ind Ur Microscopic Review Not Reportable Urine Culture Comments Culture not ind Urine Osmolality Ur Random Creatinine Ur Random Sodium Complement C3 Complement C4 07/12/18 07/12/18 07/12/18 05:35 05:35 08:22 WBC RBC Hgb Hct MCV MCH MCHC RDW Plt Count MPV Neut % (Auto) Lymph % (Auto) [place] % (Auto) Eos % (Auto) Baso % (Auto) Neut # (Auto) Lymph # (Auto) [place] # (Auto) Eos # (Auto) Baso # (Auto) WBC Differential Differential Comment Sodium 137 Potassium 4.9 Chloride 109 H Carbon Dioxide 19.8 L Anion Gap 8 BUN 49 H Creatinine 3.00 H Estimated GFR 21 L POC Glucose 183 H Random Glucose 196 H Hemoglobin A1c 8.0 H Calcium 7.8 L Phosphorus 4.5 Magnesium 1.8 Total Bilirubin 0.4 AST 10 L ALT 22 Alkaline Phosphatase 103 Total Protein 7.1 D Albumin 3.1 L D TSH 1.790 Free T4 0.95 Urine Color Urine Clarity Urine pH Ur Specific [place] Urine Protein Urine Glucose (UA) Urine Ketones Urine Occult Blood Urine Nitrate Urine Bilirubin Urine Urobilinogen Ur Leukocyte Esterase Hyaline Casts Granular Casts Micro UA Comment Ur Microscopic Review Urine Culture Comments Urine Osmolality Ur Random Creatinine Ur Random Sodium Complement C3 125 Complement C4 32 07/12/18 11:44 WBC RBC Hgb Hct MCV MCH MCHC RDW Plt Count MPV Neut % (Auto) Lymph % (Auto) [place] % (Auto) Eos % (Auto) Baso % (Auto) Neut # (Auto) Lymph # (Auto) [place] # (Auto) Eos # (Auto) Baso # (Auto) WBC Differential Differential Comment Sodium Potassium Chloride Carbon Dioxide Anion Gap BUN Creatinine Estimated GFR POC Glucose 199 H Random Glucose Hemoglobin A1c Calcium Phosphorus Magnesium Total Bilirubin AST ALT Alkaline Phosphatase Total Protein Albumin TSH Free T4 Urine Color Urine Clarity Urine pH Ur Specific [place] Urine Protein Urine Glucose (UA) Urine Ketones Urine Occult Blood Urine Nitrate Urine Bilirubin Urine Urobilinogen Ur Leukocyte Esterase Hyaline Casts Granular Casts Micro UA Comment Ur Microscopic Review Urine Culture Comments Urine Osmolality Ur Random Creatinine Ur Random Sodium Complement C3 Complement C4 - Imaging Abdomen/Bladder Ultrasound 07/11/18 00:00 CONCLUSION: 1. Echogenic thin cortex suggesting chronic renal disease. 2. No hydronephrosis - Procedures NONE Assessment and Plan - Plan acute renal failure. Likely secondary to medications versus dehydration from chronic on and off diarrhea-medical renal disease and diabetes weakness due to renal failure increase activity anemia- as compared to prior labs sleep apnea Hyperkalemia treated with Kayexalate Hypertension Diabetes Coronary artery disease status post CABG. Triple bypass in 2005, and quadruple bypass in 2011. States that he is due for angiogram on August 15, 2018 because of abnormal stress test done recently. Hyperlipidemia COPD. Recent diagnosis. Obstructive sleep apnea on CPAP at night History of renal stones Osteoarthritis Rheumatoid arthritis Plan: oral hydration for now AND FLULIDS hold metformin, lisinopril, aldactone, lasix will follow hgb/hct in am pt denies acute bleed- stool for guaiac if he makes bm nephrology consult has had ultrasounds of the kidneys resume rest of home meds Will get physical therapy and occupational therapy to eval and TREAT dvt prophylaxis with heparin gi prophylaxis on pantoprazole Code Status: FULL CODE Discussed Condition With: RN AND PT AND CM Discharge Planning: Pending improvement of renal functions and clearance by nephrology
[2018-07-12] MEDS: Latanoprost 0.005% Opth Drops 2.5 ML Bottle EACH EYE SCH (17:07)
[2018-07-13 07:47] LABS: Prothrombin Time 10.2 sec (9.8-11.6)
[2018-07-13 07:49] LABS: Eos # (Auto) 0.1 th/mm3 (0.0-0.4); Eos % (Auto) 2.9 % (0.0-4.0); Hematocrit 31.2 % (39.0-51.0); Hemoglobin 10.5 gm/dL (13.0-17.0); Lymph # (Auto) 1.3 th/mm3 (1.0-4.8); Lymph % (Auto) 31.8 % (9.0-44.0); Mean Corpuscular HGB Conc 33.8 % (32.0-36.0); Mean Corpuscular Hemoglobin 31.1 pg (27.0-34.0); Mean Platelet Volume 7.5 fL (7.0-11.0); Mono # (Auto) 0.3 th/mm3 (0.0-0.9); Mono % (Auto) 6.9 % (0.0-8.0); Neut # (Auto) 2.3 th/mm3 (1.8-7.7); Neut % (Auto) 57.4 % (16.0-70.0); Platelet Count 176 th/mm3 (150-450); Red Blood Count 3.39 mil/mm3 (4.50-5.90); Red Cell Distribution Width 13.4 % (11.6-17.2)
[2018-07-13 07:55] VITALS: BP 131/66; RESP 18; TEMP 97.7; O2SAT 99
[2018-07-13] MEDS: Heparin - SQ 10,000 UNITS/ML Vial SQ SCH ×2 (08:03)
[2018-07-13] MEDS: Brimonidine 0.2% Opth Drops 5 ML Bottle EACH EYE SCH (08:04)
[2018-07-13] MEDS: Isosorbide Mononitrate 30 MG ER 24HR Tablet (Imdur) PO SCH (08:04)
[2018-07-13] MEDS: Metoprolol Tartrate 25 MG Tablet PO SCH (08:04)
[2018-07-13] MEDS: INSULIN GLULISINE SQ SCH (08:05)
[2018-07-13 08:23] LABS: Alanine Aminotransferase 19 U/L (12-78); Albumin 3.1 g/dL (3.4-5.0); Alkaline Phosphatase 90 U/L (45-117); Anion Gap 7 meq/L (5-15); Aspartate Aminotransferase 12 U/L (15-37); Blood Urea Nitrogen 34 mg/dL (7-18); Calcium 8.4 mg/dL (8.5-10.1); Carbon Dioxide 19.5 meq/L (21.0-32.0); Chloride 112 meq/L (98-107); Glomerular Filtration Rate 39 mL/min (>89); Glucose,Random 135 mg/dL (74-106); Magnesium 1.7 mg/dL (1.5-2.5); Phosphorus 3.4 mg/dL (2.5-4.9); Potassium 5.1 meq/L (3.5-5.1); Sodium 138 meq/L (136-145); Total Protein 6.8 g/dL (6.4-8.2)
--- NOTE | 2018-07-13 09:41 | P.PNNP ---
Subjective Interval history: No acute complaints Physical Exam Vital signs: Vital Signs 07/12/18 11:39 07/12/18 12:00 07/12/18 16:00 Temperature 97.8 F Pulse Rate 51 L 55 L 60 Respiratory Rate 18 Blood Pressure 103/56 L Pulse Oximetry 99 07/12/18 16:03 07/12/18 20:00 07/13/18 00:00 Temperature 98.3 F 97.7 F 97.7 F Pulse Rate 58 L 59 L 60 Respiratory Rate 18 18 17 Blood Pressure 124/66 131/74 Pulse Oximetry 100 98 96 07/13/18 00:13 07/13/18 00:23 07/13/18 03:47 Temperature Pulse Rate 48 L Respiratory Rate Blood Pressure Pulse Oximetry 99 97 07/13/18 04:00 07/13/18 07:00 07/13/18 07:49 Temperature 97.5 F L 97.7 F Pulse Rate 62 55 L 50 L Respiratory Rate 16 18 Blood Pressure 127/71 131/66 Pulse Oximetry 98 99 Intake & Output 07/12/18 07/13/18 07/13/18 18:59 06:59 18:59 Intake Total 3160 / 3160 1480 / 1480 Output Total 1500 / 1500 1400 / 1400 Balance 1660 / 1660 80 / 80 Weight 115.394 kg 117.1 kg Intake: IV 1000 / 1000 1000 / 1000 NS Inj 1,000 ML @ 100 mls/hr IV 1000 / 1000 1000 / 1000 .CONT .Q10H [facility] Rx#:[id number] Oral 2160 / 2160 480 / 480 Output: Urine 1500 / 1500 1400 / 1400 Other: Date of Last Bowel Movement 07/10/18 07/12/18 07/12/18 - Constitutional no acute distress - Routine HEENT Exam Head: Present: normocephalic Eye: Present: EOMI ENT: Present: mucous membranes moist - Routine Neck Exam Present: supple - Routine Respiratory Exam Present: CTA bilaterally - Routine Cardiovascular Exam Present: RRR - Routine Abdominal Exam Present: soft - Routine Skin Exam Present: intact - Routine Neurological Exam Present: alert, oriented X3 - Detailed Neurological Exam: Coma Scale Eye Opening: Spontaneous - Routine Psychiatric Exam Present: normal affect Assessment and Plan - Assessment (1) Acute renal failure Code(s): N17.9 - Acute kidney failure, unspecified Status: Acute Plan: LISA on CKD Renal ultrasound with thin cortex, suggestive of CKD LISA likely due to volume depletion - improving with IVFs Creatinine 3.8 -> 3.0-> 1.79 today 2.9L UOP Renal function improving, apparent acute on chronic CKD. Stable for d/c from renal standpoint otherwise, with improved renal function (2) Acute hyperkalemia Code(s): E87.5 - Hyperkalemia Status: Acute Plan: Resolved with treatment. Diet changed to renal/ cardiac and low potassium Should try to maintain outpatient low potassium diet.
[2018-07-13] MEDS: Sod Chloride 0.9% Inj 1,000 ML IV.CONT SCH (10:26)
--- NOTE | 2018-07-13 10:57 | P.DS ---
DS: Providers Date of admission: 07/10/18 19:06 Primary care physician: [facility] Consults: 07/11/18 02:48 Consult to Nephrology Routine Consulting Provider: Sumi Roa Does the patient have a [employer] Machinist who follows them?: No Preferred Nephrology Advertising Solicitor:: Guard Lieutenant Physician Reason for Consultation: acute renal failure Notified:: Service Spoke with:: erasto Date Notified:: 07/11/18 Time Notified:: 03:18 Ordering Provider: WHITNEY DS: Diagnosis Discharge Diagnosis (1) Acute hyperkalemia: Status: Acute (2) Acute kidney injury: Status: Acute DS: Summary HPI from admission: History from patient, ER physician communication, and review of medical records. Patient reported that he was at the [place] clinic for his regular appointment with the physical therapist. Physical therapist noted that patient was not looking well and therefore called the primary care nurse who examined him and thought that he was not looking well. He then was evaluated by his doctor in the clinic agreed with the nurse assessment and therefore did blood work at the clinic. The blood work revealed acute renal failure for which he was sent to the hospital. Patient also reports that for the past 2 weeks, he has been feeling generally weak. He says was simply not able to walk with his walker anymore. He also reports of shortness of breath. Denies any nausea or vomiting or diarrhea. Denies any fever/cough. Denies any urinary burning or pain on urination or frequent urination. Denies any hematemesis/hematochezia/melena/hematuria. He states that he however has soft stools on and off and loose stools. States this has been chronic. Patient is not aware of any prior history of renal failure. He does not have any flank pain. He is on statins at home. However nothing new medications. He is also taking metformin, spironolactone, furosemide. On presentation patient had stable vitals, labs were significant for hyperkalemia 5.1, Cr 4.8. Patient was admitted to the medical floor for management of acute kidney injury. ISSUES ADDRESSED DURING THIS HOSPITALIZATION: 1. Acute kidney injury on CKD- was thought to be prerenal due to volume depletion. He was started on IV fluids. Lasix, Lisinopril, Spironolactone were stopped. Creatinine trended down from 4.8 to 1.79mg/dl at the time of discharge. Renal US showed thinning cortex suggestive of CKD Patient has been advised to take sufficient amounts of fluids. 2. Hyperkalemia in setting of acute kidney injury- received kayexelate on admission. Lisinopril and Spironolactone were stopped as mentioned above. Potassium improved but stayed in the upper normal range. Patient has been educated on low k diet. Patient has been advised to follow up with his PCP in 2-3 days for re- evaluation. Time Spent with Patient Total time spent providing and/or coordinating discharge services:>30 minutes. Results Procedures completed during hospitalization: NONE Labs on day of discharge: Labs from last 24 hours 07/13/18 07/13/18 07/13/18 07:51 05:35 05:35 WBC RBC Hgb Hct MCV MCH MCHC RDW Plt Count MPV Neut % (Auto) Lymph % (Auto) [place] % (Auto) Eos % (Auto) Baso % (Auto) Neut # (Auto) Lymph # (Auto) [place] # (Auto) Eos # (Auto) Baso # (Auto) WBC Differential Differential Comment PT 10.2 INR 1.0 Sodium 138 Potassium 5.1 Chloride 112 H Carbon Dioxide 19.5 L Anion Gap 7 BUN 34 H Creatinine 1.79 H Estimated GFR 39 L POC Glucose 164 H Random Glucose 135 H Hemoglobin A1c Calcium 8.4 L Phosphorus 3.4 D Magnesium 1.7 Total Bilirubin 0.3 AST 12 L ALT 19 Alkaline Phosphatase 90 Total Protein 6.8 Albumin 3.1 L 07/13/18 07/13/18 07/12/18 05:35 03:04 21:14 WBC 4.0 RBC 3.39 L Hgb 10.5 L Hct 31.2 L MCV 92.0 MCH 31.1 MCHC 33.8 RDW 13.4 Plt Count 176 MPV 7.5 Neut % (Auto) 57.4 Lymph % (Auto) 31.8 [place] % (Auto) 6.9 Eos % (Auto) 2.9 Baso % (Auto) 1.0 Neut # (Auto) 2.3 Lymph # (Auto) 1.3 [place] # (Auto) 0.3 Eos # (Auto) 0.1 Baso # (Auto) 0.0 WBC Differential . Differential Comment Auto diff final PT INR Sodium Potassium Chloride Carbon Dioxide Anion Gap BUN Creatinine Estimated GFR POC Glucose 146 H 180 H Random Glucose Hemoglobin A1c Calcium Phosphorus Magnesium Total Bilirubin AST ALT Alkaline Phosphatase Total Protein Albumin 07/12/18 07/12/18 07/12/18 16:05 11:44 05:35 WBC RBC Hgb Hct MCV MCH MCHC RDW Plt Count MPV Neut % (Auto) Lymph % (Auto) [place] % (Auto) Eos % (Auto) Baso % (Auto) Neut # (Auto) Lymph # (Auto) [place] # (Auto) Eos # (Auto) Baso # (Auto) WBC Differential Differential Comment PT INR Sodium Potassium Chloride Carbon Dioxide Anion Gap BUN Creatinine Estimated GFR POC Glucose 137 H 199 H Random Glucose Hemoglobin A1c 8.0 H Calcium Phosphorus Magnesium Total Bilirubin AST ALT Alkaline Phosphatase Total Protein Albumin Impressions ITS Impressions Abdomen/Bladder Ultrasound 07/11/18 00:00 CONCLUSION: 1. Echogenic thin cortex suggesting chronic renal disease. 2. No hydronephrosis Discharge Plan Discharge Disposition Patient Disposition: Discharge Home Discharge Condition Condition: Stable Discharge Order Discharge Orders: Discharge Order (Routine); Ordered 07/13/18 Ordered By: Jennifer Vides Discharge Details Anticipated Discharge Date: 07/13/18 Physicians Team Primary Care Provider: [facility] 's Attending Provider: Jennifer Vides Other Providers: Smui Roa Rxs /Orders / Referrals /Forms Prescriptions: Continue latanoprost 0.005 % Drops 1 drp EACH EYE QPM RF: 0 doxepin 50 mg Capsule 50 mg PO DAILY RF: 0 isosorbide mononitrate 30 mg Tablet Extended Release 24 Hr 30 mg PO DAILY RF: 0 aspirin [Aspir-81] 81 mg Tablet,Delayed Release (Dr/Ec) 81 mg PO DAILY RF: 0 nifedipine 90 mg Tablet Extended Release 24hr 90 mg PO DAILY RF: 0 pantoprazole 40 mg Tablet,Delayed Release (Dr/Ec) 40 mg PO DAILY RF: 0 brimonidine 0.2 % Drops 0.2 % EACH EYE TID RF: 0 nitroglycerin 0.4 mg Tablet, Sublingual 0.4 mg SUBLINGUAL Q5-15M PRN (Reason: Angina) RF: 0 insulin aspart U-100 100 unit/mL Insulin Pen 8 unit SUBCUT TID RF: 0 metoprolol tartrate 25 mg Tablet 25 mg PO BID RF: 0 insulin glulisine U-100 100 unit/mL Solution 24 unit SUBCUT QAM RF: 0 Discontinued furosemide 40 mg Tablet 20 mg PO BID RF: 0 metformin 500 mg Tablet 500 mg PO BID RF: 0 spironolactone 100 mg Tablet 100 mg PO DAILY RF: 0 lisinopril 40 mg Tablet 40 mg PO DAILY RF: 0 Referrals: [facility] [Primary Care Provider] - See Instructions Discharge Instructions Patient Printed Instructions: Potassium Content of Foods List (DC) Additional Instructions: You presented to the hospital with generalized weakness, lab work done revealed acute kidney injury with your creatinine level at 4.8mg/dl, and a high potassium of 5.9mmol/liter. You were found to be dehydrated and was started on intravenous hydration. Your kidney numbers have improved, your Creatinine on the day of discharge was 1.79mg /dl. Your potassium level improved with treatment, but was still in the high range of normal. It is advisable that you AVOID high potassium foods. The following medication were temporarily stopped because of acute kidney injury : Metformin, Lisinopril, Lasix, Spirolactone. Do not take these medication until you are re-evaluated by your doctor who may gradually start them if need arises. Follow up with your primary doctor in 2-3 days for re-evaluation. Post Discharge Care Plan Care Plan Goals: Your Health Problems: acute kidney injury, high potassium Goals to Promote Your Health: * To prevent worsening of your condition * To maintain your health at the optimal level Directions to Meet Your Goals: * Take your medications as prescribed * Follow your dietary instruction * Follow activity as directed * Keep your appointments as scheduled * Take your immunizations and boosters as scheduled * If your symptoms worsen call your PCP * If no PCP go to Urgent Care or Emergency Room Smoking is dangerous to your health. Avoid second hand smoke. You may reach the 24-hour crisis hotline for domestic abuse at . Status ED Status: Left Department Discharge Information Discharge Date/Time: 07/13/18 12:16
[2018-07-13 12:01] VITALS: PULSE 62
== END 2018-07-13 12:16 | disposition home or self-care (01) | DRG 683 ==
LOC: NEPE 16:57 → NEDA 19:06 → HCIN 07-11 00:17
PROVIDERS: ADMIT Hospitalist; ATTEND Hospitalist
CPT/HCPCS: 76775; 80048; 80053; 80069; 81001; 82550; 82570; 82948; 82962; 83036; 83735; 83935; 84100; 84300; 84439; 84443; 85025; 85610; 86021; 86038; 86160; 93005; 94002; 94003; 94656; 94657; 94664; 97162; 97167; 99285; J0610; J1644; J1815; J7030; J7040

== ENCOUNTER 2018-08-21 12:54 | Observation (INO) ==
[2018-08-21] MEDS ORDERED: Sod Chloride 0.9% Inj 1,000 ML IV.SIG SCH ×2 (13:45→14:45)
[2018-08-21 13:57] LABS: VBG Base Excess -7.4 mmol/L (-2-2); VBG Blood Gas Oxygen Content 7.9 Vol % (9.0-17.0); VBG PCO2 38 mmHG (44-48); VBG PO2 31 mmHG (35-40)
[2018-08-21 14:03] LABS: Baso # (Auto) 0.1 th/mm3 (0.0-0.2); Eos # (Auto) 0.2 th/mm3 (0.0-0.4); Eos % (Auto) 3.5 % (0.0-4.0); Hematocrit 35.5 % (39.0-51.0); Hemoglobin 11.9 gm/dL (13.0-17.0); Lymph # (Auto) 0.9 th/mm3 (1.0-4.8); Mean Corpuscular HGB Conc 33.7 % (32.0-36.0); Mean Corpuscular Hemoglobin 30.9 pg (27.0-34.0); Mean Corpuscular Volume 91.9 fL (80.0-100.0); Mean Platelet Volume 7.5 fL (7.0-11.0); Mono # (Auto) 0.4 th/mm3 (0.0-0.9); Mono % (Auto) 5.3 % (0.0-8.0); Neut # (Auto) 5.1 th/mm3 (1.8-7.7); Neut % (Auto) 76.2 % (16.0-70.0); Platelet Count 236 th/mm3 (150-450); Red Blood Count 3.86 mil/mm3 (4.50-5.90); Red Cell Distribution Width 13.9 % (11.6-17.2); White Blood Count 6.7 th/mm3 (4.0-11.0)
--- NOTE | 2018-08-21 14:12 | ED ---
HPI General Chief complaint: Diabetic Stated complaint: High blood sugar complaint Time Seen by Provider: 08/21/18 13:34 Source: patient and EMS Mode of arrival: EMS Limitations: no limitations History of Present Illness HPI narrative: 62 year old male with a past medical history of diabetes, HTN, HLD, CAD s/p two CABG with 3 stents placed 2-3 weeks ago who presents today with hyperglycemia. He states he was at a routine eye exam this morning and was urged to go to the ED because of his blood glucose level. He states that he feels thirsty but is otherwise asymptomatic. He reports that his diabetes medications have been recently changed and his fasting glucose has been up in the 200s over the last month and a half. Patient denies chest pain, shortness of breath, changes in vision, headaches, weakness, nausea, vomiting, abdominal pain or changes in urination or bowel movements. Patient says he has not eaten since dinner last night and because of that has only had 28 of Lantus this morning. Related Data Home Medications Medication Instructions Recorded Confirmed aspirin [Aspir-81] 81 mg PO DAILY 07/10/18 08/21/18 brimonidine 0.2 % EACH EYE TID 07/10/18 08/21/18 doxepin 100 mg PO DAILY 07/10/18 08/21/18 insulin aspart U-100 10 unit SUBCUT TID 07/10/18 08/21/18 insulin glulisine U-100 34 unit SUBCUT QAM 07/10/18 08/21/18 latanoprost 1 drp EACH EYE QPM 07/10/18 08/21/18 metoprolol tartrate 25 mg PO BID 07/10/18 08/21/18 nifedipine 90 mg PO DAILY 07/10/18 08/21/18 nitroglycerin 0.4 mg SUBLINGUAL Q5-15M PRN 07/10/18 08/21/18 pantoprazole 40 mg PO DAILY 07/10/18 08/21/18 acetaminophen 325 mg PO QID PRN 08/07/18 08/21/18 prednisolone acetate 1 drp OPHTHALMIC (EYE) QID 08/08/18 08/21/18 clopidogrel [Plavix] 75 mg PO DAILY 08/14/18 08/21/18 Previous Rx's Medication Instructions Recorded atorvastatin 80 mg PO HS 30 Days #120 tab 08/12/18 isosorbide mononitrate 120 mg PO DAILY 30 Days #120 tab 08/12/18 Allergies Allergy/AdvReac Type Severity Reaction Status Date / Time penicillin G Allergy Severe Rash Verified 08/21/18 13:44 simvastatin Allergy Severe Rash Verified 08/21/18 13:44 aspirin AdvReac Severe HALLUCINATI Verified 08/21/18 13:44 ONS oxycodone AdvReac Severe HALLUCINATI Verified 08/21/18 13:44 ONS Review of Systems ROS: all other systems reviewed are negative REPLACED BY [facility] Medical History Medical History CKD (chronic kidney disease) stage 3, GFR 30-59 ml/min (Acute) Diabetes (Acute) HTN (hypertension) (Acute) Hyperlipidemia (Acute) Osteoarthritis (Acute) Rheumatoid aortitis (Acute) Surgical History Surgical History H/O shoulder surgery (Acute) History of hip replacement (Acute) S/P CABG x 3 (Acute) S/P CABG x 4 (Acute) Family History Family History Other Diabetes mellitus Social History Social History Substance History: No History of Abuse Second Hand Smoke Exposure: No Smoking Status: Former smoker Tobacco Type: Cigarettes How Often Do You Have a Drink Containing Alcohol: Monthly or less Recent Travel in [facility] within the Last 8 Weeks: No Recent Out of Country Travel within the Last 8 Weeks: No Immunization History Tetanus Immunization: Unsure Exam Narrative Exam Narrative: GENERAL: Well-appearing in no distress. SKIN: Focused skin assessment warm/dry. HEAD: Atraumatic. Normocephalic. EYES: Pupils equal and round. No scleral icterus. No injection or drainage. ENT: No nasal bleeding or discharge. Mucous membranes pink and moist. NECK: Trachea midline. No JVD. CARDIOVASCULAR: Regular rate and rhythm. No murmur appreciated. RESPIRATORY: No accessory muscle use. Clear to auscultation. Breath sounds equal bilaterally. GASTROINTESTINAL: Abdomen soft, non-tender, nondistended. Hepatic and splenic margins not palpable. MUSCULOSKELETAL: No obvious deformities. No clubbing. No cyanosis. No edema. NEUROLOGICAL: Awake and alert. No obvious cranial nerve deficits. Motor grossly within normal limits. Normal speech. PSYCHIATRIC: Appropriate mood and affect; insight and judgment normal. Course Initial Documented Vital Signs Temperature 97.5 F L 08/21/18 13:05 Pulse Rate 55 L 08/21/18 13:05 Respiratory Rate 17 08/21/18 13:05 Blood Pressure 151/76 H 08/21/18 13:05 Pulse Oximetry 99 08/21/18 13:05 Last Documented Vital Signs Temperature 97.5 F L 08/21/18 13:05 Pulse Rate 58 L 08/21/18 16:27 Respiratory Rate 18 08/21/18 16:27 Blood Pressure 140/93 H 08/21/18 16:27 Pulse Oximetry 96 08/21/18 16:27 Medical Decision Making RAYMOND Attestation RAYMOND supervised visit: Yes Attestation: I, Dr. Walker, have reviewed the advance practice practitioner' s documentation and am in agreement, met with the patient face to face, made the diagnosis, and the medical decision making was done by me. *My assessment and Findings: 62-year-old male with a history of diabetes presents for evaluation of elevated blood sugar at home. Patient's sugars have been elevated for past few weeks. He takes scheduled lantus and novolog but does not give sliding scale. Labs with mild acidosis but negative ketones. BS not improved after IVF and insulin. Admit to medicine. MDM Narrative Medical decision making narrative: 62-year-old male who presents to the ED for evaluation of hyperglycemia. Patient was properly examined and was found to have signs and symptoms of unclear etiology. Labs and imaging ordered. Labs and imaging showed hyperglycemia, kidney disease which is chronic as well as positive troponin. Patient was given insulin here as well as fluids here. Patient has had some improvement of the sugars were still very high. Case was discussed with my attending who recommends admission for further evaluation and treatment. Patient agrees with this. Patient was admitted for further evaluation of his sugars. Case discussed with Dr. Barbosa who agrees admission to his service. Medical Screen Exam Complete: Yes Emergency Medical Condition: Yes Differential Diagnosis Differential Diagnosis: Hyperglycemia versus kidney failure versus hyperkalemia versus electrolyte normality versus noncompliant diabetic Medical Records Medical records reviewed: Yes I reviewed the patient's medical records. Lab Data Lab results reviewed: Yes I reviewed the patient's lab results. Result diagrams: 08/21/18 13:53 08/21/18 13:53 Lab Results 08/21/18 08/21/18 08/21/18 Range/Units 13:50 13:53 13:53 WBC 6.7 (4.0-11.0) th/mm3 RBC 3.86 L (4.50-5.90) mil/mm3 Hgb 11.9 L (13.0-17.0) gm/dL Hct 35.5 L (39.0-51.0) % MCV 91.9 (80.0-100.0) fL MCH 30.9 (27.0-34.0) pg MCHC 33.7 (32.0-36.0) % RDW 13.9 (11.6-17.2) % Plt Count 236 (150-450) th/mm3 MPV 7.5 (7.0-11.0) fL Neut % (Auto) 76.2 H (16.0-70.0) % Lymph % (Auto) 14.0 (9.0-44.0) % Jay % (Auto) 5.3 (0.0-8.0) % Eos % (Auto) 3.5 (0.0-4.0) % Baso % (Auto) 1.0 (0.0-2.0) % Neut # (Auto) 5.1 (1.8-7.7) th/mm3 Lymph # (Auto) 0.9 L (1.0-4.8) th/mm3 Jay # (Auto) 0.4 (0.0-0.9) th/mm3 Eos # (Auto) 0.2 (0.0-0.4) th/mm3 Baso # (Auto) 0.1 (0.0-0.2) th/mm3 WBC Differential . Differential Comment Auto diff final Puncture Site Drawn by rn Patient Temperature 98.6 VBG pH 7.30 L (7.360-7.400) VBG pCO2 38 L (44-48) mmHG VBG pO2 31 L (35-40) mmHG VBG HCO3 18 L (22-26) mmol/L VBG O2 Saturation 51 L (70-76) % VBG O2 Content 7.9 L (9.0-17.0) Vol % VBG Base Excess -7.4 L (-2-2) mmol/L VBG Carboxyhemoglobin 1.6 (0-4) % VBG Methemoglobin 0.9 (0-2) % Hemoglobin 11.1 L (12.0-16.0) G/DL O2 Delivery Device Room air Inspired O2 21 % Critical Value No Sodium 129 L (136-145) meq/L Potassium 4.5 (3.5-5.1) meq/L Chloride 100 (98-107) meq/L Carbon Dioxide 21.2 (21.0-32.0) meq/L Anion Gap 8 (5-15) meq/L BUN 23 H (7-18) mg/dL Creatinine 1.74 H (0.60-1.30) mg/dL Estimated GFR 40 L (>89) mL/min POC Glucose (68-110) mg/dl Random Glucose 623 H* (74-106) mg/dL Calcium 8.0 L (8.5-10.1) mg/dL Magnesium 1.9 (1.5-2.5) mg/dL Total Bilirubin 0.4 (0.2-1.0) mg/dL AST 18 (15-37) U/L ALT 23 (12-78) U/L Alkaline Phosphatase 132 H (45-117) U/L Troponin I (0.02-0.05) ng/mL Total Protein 8.0 (6.4-8.2) g/dL Albumin 3.5 (3.4-5.0) g/dL Beta-Hydroxybutyric Acd 0.12 (0.00-0.39) mmol/L Urine Color (Yellw/Straw) Urine Clarity (Clear) Urine pH (5.0-8.5) Ur Specific [place] (1.002-1.035) Urine Protein (Neg-Trace) mg/dL Urine Glucose (UA) (Negative) mg/dL Urine Ketones (Negative) mg/dL Urine Occult Blood (Negative) Urine Nitrate (Negative) Urine Bilirubin (Negative) Urine Urobilinogen (Less than 2) mg/dL Ur Leukocyte Esterase (Negative) Urine WBC (0-5) /hpf Micro UA Comment Ur Microscopic Review Urine Culture Comments 02/14/19 02/14/19 02/14/19 Range/Units 13:53 13:56 14:07 WBC (4.0-11.0) th/mm3 RBC (4.50-5.90) mil/mm3 Hgb (13.0-17.0) gm/dL Hct (39.0-51.0) % MCV (80.0-100.0) fL MCH (27.0-34.0) pg MCHC (32.0-36.0) % RDW (11.6-17.2) % Plt Count (150-450) th/mm3 MPV (7.0-11.0) fL Neut % (Auto) (16.0-70.0) % Lymph % (Auto) (9.0-44.0) % Jay % (Auto) (0.0-8.0) % Eos % (Auto) (0.0-4.0) % Baso % (Auto) (0.0-2.0) % Neut # (Auto) (1.8-7.7) th/mm3 Lymph # (Auto) (1.0-4.8) th/mm3 Jay # (Auto) (0.0-0.9) th/mm3 Eos # (Auto) (0.0-0.4) th/mm3 Baso # (Auto) (0.0-0.2) th/mm3 WBC Differential Differential Comment Puncture Site Patient Temperature VBG pH (7.360-7.400) VBG pCO2 (44-48) mmHG VBG pO2 (35-40) mmHG VBG HCO3 (22-26) mmol/L VBG O2 Saturation (70-76) % VBG O2 Content (9.0-17.0) Vol % VBG Base Excess (-2-2) mmol/L VBG Carboxyhemoglobin (0-4) % VBG Methemoglobin (0-2) % Hemoglobin (12.0-16.0) G/DL O2 Delivery Device Inspired O2 % Critical Value Sodium (136-145) meq/L Potassium (3.5-5.1) meq/L Chloride (98-107) meq/L Carbon Dioxide (21.0-32.0) meq/L Anion Gap (5-15) meq/L BUN (7-18) mg/dL Creatinine (0.60-1.30) mg/dL Estimated GFR (>89) mL/min POC Glucose Greater than 600 H* (68-110) mg/dl Random Glucose (74-106) mg/dL Calcium (8.5-10.1) mg/dL Magnesium (1.5-2.5) mg/dL Total Bilirubin (0.2-1.0) mg/dL AST (15-37) U/L ALT (12-78) U/L Alkaline Phosphatase (45-117) U/L Troponin I 0.17 H (0.02-0.05) ng/mL Total Protein (6.4-8.2) g/dL Albumin (3.4-5.0) g/dL Beta-Hydroxybutyric Acd (0.00-0.39) mmol/L Urine Color Straw (Yellw/Straw) Urine Clarity Clear (Clear) Urine pH 5.0 (5.0-8.5) Ur Specific [place] 1.025 (1.002-1.035) Urine Protein Negative (Neg-Trace) mg/dL Urine Glucose (UA) 500 or greater (Negative) mg/dL Urine Ketones Negative (Negative) mg/dL Urine Occult Blood Negative (Negative) Urine Nitrate Negative (Negative) Urine Bilirubin Negative (Negative) Urine Urobilinogen Less than 2 (Less than 2) mg/dL Ur Leukocyte Esterase Negative (Negative) Urine WBC Less than 1 (0-5) /hpf Micro UA Comment Culture not ind Ur Microscopic Review Not Reportable Urine Culture Comments Culture not ind 08/21/18 08/21/18 Range/Units 16:24 18:44 WBC (4.0-11.0) th/mm3 RBC (4.50-5.90) mil/mm3 Hgb (13.0-17.0) gm/dL Hct (39.0-51.0) % MCV (80.0-100.0) fL MCH (27.0-34.0) pg MCHC (32.0-36.0) % RDW (11.6-17.2) % Plt Count (150-450) th/mm3 MPV (7.0-11.0) fL Neut % (Auto) (16.0-70.0) % Lymph % (Auto) (9.0-44.0) % Jay % (Auto) (0.0-8.0) % Eos % (Auto) (0.0-4.0) % Baso % (Auto) (0.0-2.0) % Neut # (Auto) (1.8-7.7) th/mm3 Lymph # (Auto) (1.0-4.8) th/mm3 Jay # (Auto) (0.0-0.9) th/mm3 Eos # (Auto) (0.0-0.4) th/mm3 Baso # (Auto) (0.0-0.2) th/mm3 WBC Differential Differential Comment Puncture Site Patient Temperature VBG pH (7.360-7.400) VBG pCO2 (44-48) mmHG VBG pO2 (35-40) mmHG VBG HCO3 (22-26) mmol/L VBG O2 Saturation (70-76) % VBG O2 Content (9.0-17.0) Vol % VBG Base Excess (-2-2) mmol/L VBG Carboxyhemoglobin (0-4) % VBG Methemoglobin (0-2) % Hemoglobin (12.0-16.0) G/DL O2 Delivery Device Inspired O2 % Critical Value Sodium (136-145) meq/L Potassium (3.5-5.1) meq/L Chloride (98-107) meq/L Carbon Dioxide (21.0-32.0) meq/L Anion Gap (5-15) meq/L BUN (7-18) mg/dL Creatinine (0.60-1.30) mg/dL Estimated GFR (>89) mL/min POC Glucose 406 H 335 H (68-110) mg/dl Random Glucose (74-106) mg/dL Calcium (8.5-10.1) mg/dL Magnesium (1.5-2.5) mg/dL Total Bilirubin (0.2-1.0) mg/dL AST (15-37) U/L ALT (12-78) U/L Alkaline Phosphatase (45-117) U/L Troponin I (0.02-0.05) ng/mL Total Protein (6.4-8.2) g/dL Albumin (3.4-5.0) g/dL Beta-Hydroxybutyric Acd (0.00-0.39) mmol/L Urine Color (Yellw/Straw) Urine Clarity (Clear) Urine pH (5.0-8.5) Ur Specific [place] (1.002-1.035) Urine Protein (Neg-Trace) mg/dL Urine Glucose (UA) (Negative) mg/dL Urine Ketones (Negative) mg/dL Urine Occult Blood (Negative) Urine Nitrate (Negative) Urine Bilirubin (Negative) Urine Urobilinogen (Less than 2) mg/dL Ur Leukocyte Esterase (Negative) Urine WBC (0-5) /hpf Micro UA Comment Ur Microscopic Review Urine Culture Comments ECG Data Attestation: I personally reviewed and interpreted this ECG as follows: Interpretation: EKG shows sinus bradycardia with a ventricular rate of 54 bpm, DE interval 150 ms. No sign of acute ST elevation or ischemia. Read by me and attending. Discharge Plan Discharge Disposition Patient Disposition: ED Admit(ED Internal Use Only) Discharge Order Discharge Orders: ED Use Only Admit Order (Routine); Ordered 08/21/18 Ordered By: Ignacio Johnson Discharge Details Diagnosis: Acute hyperkalemia, Elevated troponin I level, Uncontrolled diabetes mellitus Physicians Team ED Provider: Haylee Walker ED Midlevel Provider: Ignacio Johnson Primary Care Provider: UNKNOWN, Attending Provider: Jennifer Vides F Status ED Status: Left Department Discharge Information Discharge Date/Time: 08/21/18 18:30
[2018-08-21 14:23] LABS: Alanine Aminotransferase 23 U/L (12-78); Albumin 3.5 g/dL (3.4-5.0); Anion Gap 8 meq/L (5-15); Aspartate Aminotransferase 18 U/L (15-37); Blood Urea Nitrogen 23 mg/dL (7-18); Carbon Dioxide 21.2 meq/L (21.0-32.0); Chloride 100 meq/L (98-107); Glomerular Filtration Rate 40 mL/min (>89); Magnesium 1.9 mg/dL (1.5-2.5); Potassium 4.5 meq/L (3.5-5.1); Sodium 129 meq/L (136-145)
[2018-08-21 14:26] LABS: Alkaline Phosphatase 132 U/L (45-117); Beta Hydroxybutyric Acid 0.12 mmol/L (0.00-0.39)
[2018-08-21 14:30] LABS: Glucose,Random 623 mg/dL (74-106)
[2018-08-21 15:08] LABS: Bilirubin,Urine Negative (Negative); Clarity,Urine Clear (Clear); Color,Urine Straw (Yellw/Straw); Glucose,Urine (UA) 500 or Greater mg/dL (Negative); Leukocyte Esterase,Urine Negative (Negative); Nitrite,Urine Negative (Negative); Specific Gravity,Urine 1.025 (1.002-1.035)
[2018-08-21] MEDS ORDERED: Acetaminophen 325 MG Tablet PO PRN (16:42)
[2018-08-21] MEDS ORDERED: Bisacodyl 10 MG Supp RECTAL PRN (16:42)
[2018-08-21] MEDS ORDERED: Nitroglycerin SL (Override) 0.4 MG Tab SL PRN (17:27)
--- NOTE | 2018-08-21 17:34 | P.HPIM ---
History of Present Illness Primary Care Physician: UNKNOWN History of Present Illness: 62 yo M with h/o IDDM,CKD, CAD s/p CABG, s/p stents 2 weeks ago,HTN,Hyperlipidemia, glaucoma who presented to ER for evaluation of hyperglycemia. Patient was noted to have high glucose at a routine eye clinic visit, glucose was apparently 499. He reports being followed up by a pharmacist at the [facility] for his insulin management. He was on 28 units of Lantus and 8 units TID Novolog which were recently increased to 34units and 10 units TID respectively. He was also instructed to increase lantus by 2 units based on glucose. Patient reports his blood glucose has been high since he was discharge a week ago. He used to be on Metformin 1gm bid before, and he feels that when it was stopped that's when his glucose control worsened. He says his pharmacist at [facility] plans to resume Metformin when cr is below 1.5 Patient was most recently admitted for NSTEMI and received stents during that admission. He has not had any symptoms since discharge and reports adherence to all his medication. On presentation to ER, VSS, labs-Cr 1.74, glucose 623 NA 129. He received 10 units of insulin IV. Patient is being admitted for management of hyperglycemia. Review of Systems Review of Systems: all other systems reviewed are negative [facility] Medical History Medical History CKD (chronic kidney disease) stage 3, GFR 30-59 ml/min (Acute) Diabetes (Acute) HTN (hypertension) (Acute) Hyperlipidemia (Acute) Osteoarthritis (Acute) Rheumatoid aortitis (Acute) Surgical History Surgical History H/O shoulder surgery (Acute) History of hip replacement (Acute) S/P CABG x 3 (Acute) S/P CABG x 4 (Acute) Family History Family History Other Diabetes mellitus Social History Social History Substance History: No History of Abuse Second Hand Smoke Exposure: No Smoking Status: Former smoker Tobacco Type: Cigarettes How Often Do You Have a Drink Containing Alcohol: 2 to 4 times a month Recent Travel in [facility] within the Last 8 Weeks: No Recent Out of Country Travel within the Last 8 Weeks: No Immunization History Tetanus Immunization: Unsure Medications and Allergies Allergies Allergy/AdvReac Type Severity Reaction Status Date / Time penicillin G Allergy Severe Rash Verified 08/21/18 13:44 simvastatin Allergy Severe Rash Verified 08/21/18 13:44 aspirin AdvReac Severe HALLUCINATI Verified 08/21/18 13:44 ONS oxycodone AdvReac Severe HALLUCINATI Verified 08/21/18 13:44 ONS Home Medications Medication Instructions Recorded Confirmed Type aspirin [Aspir-81] 81 mg PO DAILY 07/10/18 08/21/18 History brimonidine 0.2 % EACH EYE TID 07/10/18 08/21/18 History doxepin 100 mg PO DAILY 07/10/18 08/21/18 History insulin aspart U-100 10 unit SUBCUT TID 07/10/18 08/21/18 History insulin glulisine U-100 34 unit SUBCUT QAM 07/10/18 08/21/18 History latanoprost 1 drp EACH EYE QPM 07/10/18 08/21/18 History metoprolol tartrate 25 mg PO BID 07/10/18 08/21/18 History nifedipine 90 mg PO DAILY 07/10/18 08/21/18 History nitroglycerin 0.4 mg SUBLINGUAL Q5-15M PRN 07/10/18 08/21/18 History pantoprazole 40 mg PO DAILY 07/10/18 08/21/18 History acetaminophen 325 mg PO QID PRN 08/07/18 08/21/18 History prednisolone acetate 1 drp OPHTHALMIC (EYE) QID 08/08/18 08/21/18 History clopidogrel [Plavix] 75 mg PO DAILY 08/14/18 08/21/18 History Active Medications: Active Medications Acetaminophen (Tylenol) 650 mg PO Q4H PRN PRN Reason: Temp > 100.4 Bisacodyl (Dulcolax Supp) 10 mg RECTAL DAILY PRN PRN Reason: SEVERE CONSITIPATION Lactulose (Lactulose Liq) 30 ml PO DAILY PRN PRN Reason: SEVERE CONSITIPATION Ondansetron HCl (Zofran Inj) 4 mg IV.PUSH Q6H PRN PRN Reason: NAUSEA OR VOMITING Sennosides (Senokot) 17.2 mg PO Q12H PRN PRN Reason: Moderate Constipation Sodium Chloride (Ns Flush) 2 ml IV.FLUSH BID TAMARA Sodium Chloride (Ns Flush) 2 ml IV.FLUSH PRN PRN PRN Reason: FLUSH AFTER USING IV ACCESS Physical Exam Vital signs: Vital Signs 08/21/18 13:05 08/21/18 13:39 08/21/18 16:27 Temperature 97.5 F L Pulse Rate 55 L 58 L 58 L Respiratory Rate 17 18 18 Blood Pressure 151/76 H 154/86 H 140/93 H Pulse Oximetry 99 99 96 Intake & Output 08/20/18 08/21/18 08/21/18 18:59 06:59 18:59 Intake Total 1999 Balance 1999 Weight 111.584 kg Intake: IV 1999 NS Inj 1,000 ML @ 1000 mls/hr 1999 IV.SIG BOLUS TAMARA Rx#:[id number] Results Labs CBC & Chem 7: 08/21/18 13:53 08/22/18 06:00 Caprini VTE Risk Assessment Caprini VTE Risk Assessment: Moderate/High Risk (score >= 2) Caprini Risk Assessment Model: Point Value = 1 Point Value = 2 Point Value = 3 Point Value = 5 Age 41-60 Minor surgery BMI > 25 kg/m2 Swollen legs Varicose veins or History of unexplained or recurrent spontaneous Oral contraceptives or hormone replacement Sepsis (< 1 month) Serious lung disease, including pneumonia (< 1 month) Abnormal pulmonary function Acute myocardial infarction Congestive heart failure (< 1 month) History of inflammatory bowel disease Medical patient at bed rest Age 61-74 Arthroscopic surgery Major open surgery (> 45 min) Laparoscopic surgery (> 45 min) Malignancy Confined to bed (> 72 hours) Immobilizing plaster cast Central venous access Age >= 75 History of VTE Family history of VTE Factor V Leiden Prothrombin [id number] Lupus anticoagulant Anticardiolipin antibodies Elevated serum homocysteine Heparin-induced thrombocytopenia Other congenital or acquired thrombophilia Stroke (< 1 month) Elective arthroplasty Hip, pelvis, or leg fracture Acute spinal cord injury (< 1 month) Prophylaxis Regimen: Total Risk Factor Score Risk Level Prophylaxis Regimen 0-1 Low Early ambulation 2 Moderate Order ONE of the following: *Sequential Compression Device (SCD) *Heparin 5000 units SQ BID 3-4 Higher Order ONE of the following medications: *Heparin 5000 units SQ TID *Enoxaparin/Lovenox 40 mg SQ daily (WT < 150 kg, CrCl > 30 mL/min) *Enoxaparin/Lovenox 30 mg SQ daily (WT < 150 kg, CrCl > 10-29 mL/min) *Enoxaparin/Lovenox 30 mg SQ BID (WT < 150 kg, CrCl > 30 mL/min) AND/OR *Sequential Compression Device (SCD) 5 or more Highest Order ONE of the following medications: *Heparin 5000 units SQ TID (Preferred with Epidurals) *Enoxaparin/Lovenox 40 mg SQ daily (WT < 150 kg, CrCl > 30 mL/min) *Enoxaparin/Lovenox 30 mg SQ daily (WT < 150 kg, CrCl > 10-29 mL/min) *Enoxaparin/Lovenox 30 mg SQ BID (WT < 150 kg, CrCl > 30 mL/min) AND *Sequential Compression Device (SCD) Assessment and Plan Plan 62 yo M with h/o IDDM,CKD, CAD s/p CABG, s/p stents 2 weeks ago,HTN, Hyperlipidemia, glaucoma who presented to ER for evaluation of hyperglycemia. Acute problem: Uncontrolled DM with hyperglycemia Patient on Lantus 34 units and Novolog 10u tid at home. Change Lantus to 20units BID, keep Novolog at 10 units TID, and start on Sliding scale as well. monitor blood glucose and adjust insulin accordingly. Last A1C in early July, repeat. Stable chronic conditions: #HTN-BP in 140-150 range, resume home medication. #CAD: resumed ASA/Plavix/Imdur/Metoprololo/Atorvastatin #CKD III-Cr stable. #Glaucoma-home medication resumed. DVT ppx- subcut heparin.
[2018-08-21] MEDS ORDERED: Insulin NovoLIN Regular Correctional Sugar Inj SQ PRN (17:46)
[2018-08-21] MEDS ORDERED: Dextrose 50% in Water 50 ML Vial IV.PUSH PRN ×2 (17:46→22:03)
[2018-08-21] MEDS: prednisoLONE Acetate 1% Opth Susp 5 ML Bottle EACH EYE SCH ×2 (18:45→22:13)
[2018-08-21] MEDS: Latanoprost 0.005% Opth Drops 2.5 ML Bottle EACH EYE SCH ×2 (19:22→21:14)
[2018-08-21] MEDS: Brimonidine 0.2% Opth Drops 5 ML Bottle EACH EYE SCH ×2 (19:22→21:15)
[2018-08-21] MEDS: Insulin Detemir Inj 1,000 UNIT/10 ML Vial SQ SCH (21:05)
[2018-08-21] MEDS: Heparin - SQ 10,000 UNITS/ML Vial SQ SCH (21:08)
[2018-08-21] MEDS: Metoprolol Tartrate 25 MG Tablet PO SCH (21:11)
[2018-08-22] MEDS: Heparin - SQ 10,000 UNITS/ML Vial SQ SCH ×2 (06:05→14:51)
[2018-08-22 07:19] VITALS: RESP 18
[2018-08-22 08:20] LABS: Calcium 8.6 mg/dL (8.5-10.1); Carbon Dioxide 19.3 meq/L (21.0-32.0); Potassium 3.8 meq/L (3.5-5.1)
[2018-08-22] MEDS ORDERED: Isosorbide Mononitrate 30 MG ER 24HR Tablet (Imdur) PO SCH (09:00)
[2018-08-22] MEDS: Metoprolol Tartrate 25 MG Tablet PO SCH (09:02)
[2018-08-22] MEDS: Insulin Detemir Inj 1,000 UNIT/10 ML Vial SQ SCH (09:03)
[2018-08-22] MEDS: prednisoLONE Acetate 1% Opth Susp 5 ML Bottle EACH EYE SCH ×2 (09:04→13:13)
[2018-08-22] MEDS: Brimonidine 0.2% Opth Drops 5 ML Bottle EACH EYE SCH ×2 (09:04→14:53)
[2018-08-22] MEDS ORDERED: Sod Chloride 0.9% Inj 1,000 ML IV.CONT SCH (11:00)
[2018-08-22 11:25] VITALS: BP 132/65; PULSE 61; TEMP 97.8; O2SAT 96
[2018-08-22] MEDS ORDERED: Dextrose 50% in Water 50 ML Vial IV.PUSH PRN (12:51)
--- NOTE | 2018-08-22 15:56 | P.DS ---
DS: Providers Date of admission: 08/21/18 16:36 Primary care physician: UNKNOWN Brief History from admission: 62 yo M with h/o IDDM,CKD, CAD s/p CABG, s/p stents 2 weeks ago,HTN,Hyperlipidemia, glaucoma who presented to ER for evaluation of hyperglycemia. Patient was noted to have high glucose at a routine eye clinic visit, glucose was apparently 499. He reports being followed up [facility] for his insulin management. He was on 28 units of Lantus and 8 units TID Novolog which were recently increased to 34units and 10 units TID respectively. He was also instructed to increase lantus by 2 units based on glucose. Patient reports his blood glucose has been high since he was discharge a week ago. He used to be on Metformin 1gm bid before, and he feels that when it was stopped that's when his glucose control worsened. He says his pharmacist [facility] plans to resume Metformin when cr is below 1.5 Patient was most recently admitted for NSTEMI and received stents during that admission. He has not had any symptoms since discharge and reports adherence to all his medication. On presentation to ER, VSS, labs-Cr 1.74, glucose 623 NA 129. He received 10 units of insulin IV. Patient is being admitted for management of hyperglycemia. DS: Summary 62-year-old male with a history of type 2 diabetes and coronary artery disease. He presented to the ER yesterday with blood sugars over 600, ER workup did not reveal any infectious causes to drive his sugars up that high. He reports that "' blood sugars are always uncontrolled after a hospitalization" and he was indeed hospitalized with cardiac catheterization 2 weeks ago. Since that time his sugars have been difficult to control at home and have been titrating upward. With a combination of sliding scale and continuation of long-acting insulin his sugars were brought down from 600 to the 170 range and have ranged between 172 and 196 for the last 6 hours. At this point his blood sugars are acceptable, he is stable for discharge home. At home he was taking a 10 mg standard dose prior to every meal. I wrote out a sliding scale for him with extra instructions how to double up the timing of his insulin in order to with blood sugars that go above 300. He is instructed to follow-up with his primary care provider for further insulin management. Time Spent with Patient Total time spent providing and/or coordinating discharge services: Less than 30 minutes Quality: VTE Deep Vein Thrombosis/Pulmonary Embolism Present on Admission: No Results Labs on day of discharge: Labs from last 24 hours 08/22/18 08/22/18 08/22/18 15:31 12:31 06:00 Sodium 137 Potassium 3.8 Chloride 109 H D Carbon Dioxide 19.3 L Anion Gap 9 BUN 17 Creatinine 1.27 Estimated GFR 57 L POC Glucose 196 H 172 H Random Glucose 176 H D Calcium 8.6 08/21/18 08/21/18 08/21/18 21:03 18:44 16:24 Sodium Potassium Chloride Carbon Dioxide Anion Gap BUN Creatinine Estimated GFR POC Glucose 335 H 335 H 406 H Random Glucose Calcium Discharge Plan Discharge Disposition Patient Disposition: Discharge Home Discharge Condition Condition: Good Discharge Order Discharge Orders: Discharge Order (Routine); Ordered 08/22/18 Ordered By: [facility] Physicians Team Primary Care Provider: UNKNOWN, Attending Provider: Ace Yee Rxs /Orders / Referrals /Forms Prescriptions: Continue latanoprost 0.005 % Drops 1 drp EACH EYE QPM RF: 0 doxepin 50 mg Capsule 100 mg PO DAILY RF: 0 aspirin [Aspir-81] 81 mg Tablet,Delayed Release (Dr/Ec) 81 mg PO DAILY RF: 0 nifedipine 90 mg Tablet Extended Release 24hr 90 mg PO DAILY RF: 0 pantoprazole 40 mg Tablet,Delayed Release (Dr/Ec) 40 mg PO DAILY RF: 0 brimonidine 0.2 % Drops 0.2 % EACH EYE TID RF: 0 nitroglycerin 0.4 mg Tablet, Sublingual 0.4 mg SUBLINGUAL Q5-15M PRN (Reason: Angina) RF: 0 insulin aspart U-100 100 unit/mL Insulin Pen 10 unit SUBCUT TID RF: 0 metoprolol tartrate 25 mg Tablet 25 mg PO BID RF: 0 insulin glulisine U-100 100 unit/mL Solution 34 unit SUBCUT QAM RF: 0 acetaminophen 325 mg Tablet 325 mg PO QID PRN (Reason: Acute Pain) RF: 0 prednisolone acetate 1 % Drops,Suspension 1 drp OPHTHALMIC (EYE) QID RF: 0 atorvastatin 20 mg Tablet 80 mg PO HS 30 Days Qty: 120 RF: 0 isosorbide mononitrate 30 mg Tablet Extended Release 24 Hr 120 mg PO DAILY 30 Days Qty: 120 RF: 0 clopidogrel [Plavix] 75 mg Tablet 75 mg PO DAILY RF: 0 Referrals: UNKNOWN, [Primary Care Provider] - See Instructions Status ED Status: Left Department
--- NOTE | 2018-08-22 16:00 | ECG ---
Date Performed: 08/21/2018 Time Performed: 14:07:56 PTAGE: 62 years EKG: SINUS BRADYCARDIA POSSIBLE ANTERIOR MYOCARDIAL INFARCTION INFERIOR MYOCARDIAL INFARCTION AB NORMAL ECG Compared to PREVIOUS TRACING , the minimal inferior ST elevation has resolved. The serial change is n onspecific, but may represent evolution of an inferior wall infarction. The EKG is otherwise without significant serial change. PREVIOUS TRACIN08/14/2018 14.15 DOCTOR: Hyun Whittington Interpretating Date/Time 08/22/2018 15:58:57
[2018-08-22] MEDS ORDERED: Insulin NovoLOG Aspart Correctional Sugar Inj SQ SCH (17:00)
== END 2018-08-22 16:57 | disposition home or self-care (01) ==
LOC: NEDH 12:54 → NEPE 12:54 → NEPFCDU 18:30
PROVIDERS: ADMIT Family Medicine; ATTEND Family Medicine
DX: Z79.82 Long term (current) use of aspirin; Z95.1 Presence of aortocoronary bypass graft; I25.10 Atherosclerotic heart disease of native coronary artery without angina pectoris; E11.22 Type 2 diabetes mellitus with diabetic chronic kidney disease; Z96.649 Presence of unspecified artificial hip joint; I12.9 Hypertensive chronic kidney disease with stage 1 through stage 4 chronic kidney disease, or unspecified chronic kidney disease; N18.3 Chronic kidney disease, stage 3 (moderate); M05.30 Rheumatoid heart disease with rheumatoid arthritis of unspecified site; E78.5 Hyperlipidemia, unspecified; H40.9 Unspecified glaucoma; E87.5 Hyperkalemia; E11.65 Type 2 diabetes mellitus with hyperglycemia; Z79.4 Long term (current) use of insulin; Z79.02 Long term (current) use of antithrombotics/antiplatelets; F17.210 Nicotine dependence, cigarettes, uncomplicated; Z83.3 Family history of diabetes mellitus
CPT/HCPCS: 80048; 80053; 81001; 82010; 82803; 82805; 82948; 82962; 83735; 84484; 85025; 90760; 90761; 90772; 90782; 93005; 96360; 96361; 96372; 99285; G0378; J1644; J1815; J7030